=== PATIENT | male | born 1945 | race African-American/Black ===

== ENCOUNTER 2019-12-02 16:53 | Emergency (ER) | payer MEDICARE, MEDICAID, SELFPAY ==
--- NOTE | ~2019-12-02 | XR_ITS ---
EXAMINATION: XR chest 1V portable INDICATION: Atrial fibrillation with RVR TECHNIQUE: Portable AP chest at 1713 hours COMPARISON: None available FINDINGS: Cardiomegaly is noted. There are changes of cardiac valve surgery. Small pleural effusions are present. There are minimal airspace opacities of the mid and lower lung zones. IMPRESSION: 1. Small pleural effusions. 2. Cardiomegaly. 3. Minimal airspace opacities of the mid and lower lung zones, consistent with atelectasis versus pne umonia. Reviewed, dictated and finalized at location A. IMPRESSION: 1. Small pleural effusions. 2. Cardiomegaly. 3. Minimal airspace opacities of the mid and lower lung zones, consistent with atelectasis versus pneumonia.
[2019-12-02 16:54] VITALS: BP 132/98; PULSE 106; RESP 18; TEMP 37.1; O2SAT 100
[2019-12-02 17:00] VITALS: PULSE 106
--- NOTE | 2019-12-02 17:09 | ECG_ITS ---
Measurements Intervals [place] Rate: 106 P: [place]: 0 QRS: -30 QRSD: 103 T: 35 QT: 358 QTc: 477 Interpretive Statements ATRIAL FLUTTER/TACHYCARDIA WITH RAPID VENTRICULAR RESPONSE DELAYED PRECORDIAL R/S TRANSITION BORDERLINE ST-T WAVE ABNORMALITY- INFERIOR LEADS BASELINE ARTIFACT- I, II, III, AVR, AVL, AVF, V1 ABNORMAL ECG Electronically Signed On 12-02-2019 18:06:30 CDT by Renny Lao D.O.
[2019-12-02 17:18] LABS: Basophils Percent Auto 0.7 % (0.2-1.2); Eosinophils Absolute Auto 0.2 K/mm3 (0-0.3); Eosinophils Percent Auto 3.7 % (0-4.4); Hematocrit 33.4 % (42.0-52.0); Immature Granulocyte Absolute 0.01 K/mm3 (0.00-0.031); Immature Granulocyte Percent A 0.2 % (0-0.5); Lymphocytes Percent Auto 26.7 % (18.3-44.2); Mean Corpuscular HGB Conc 29.9 g/dl (32-36); Mean Platelet Volume 10.6 fl (7.4-10.4); Monocytes Absolute Auto 0.8 K/mm3 (0.1-0.6); Monocytes Percent Auto 13.7 % (2.6-8.5); Neutrophils Absolute Auto 3.1 K/mm3 (1.3-6.7); Platelet Count Result 272 k/mm3 (150-375); Red Blood Count 3.84 M/mm3 (4.6-6.20); Red Cell Distribution Width 17.1 % (11.5-14.5); White Blood Count 5.6 K/mm3 (4.5-10.0)
[2019-12-02 17:28] LABS: INR 1.6; Partial Thromboplastin Time 36.6 SECONDS (22.3-36.8)
[2019-12-02 17:36] LABS: Platelet Estimate Adequate (Adequate)
[2019-12-02 17:37] LABS: Anisocytosis 2+ (NORMAL); Hypochromasia 1+ (NORMAL)
[2019-12-02 17:38] LABS: Alanine Aminotransferase 12 U/L (4-50); Albumin Level 4.3 g/dL (3.5-5.1); Alkaline Phosphatase 89 U/L (38-126); Aspartate Amino Transferase 23 U/L (17-59); Bilirubin,Total 0.4 mg/dL (0.2-1.3); Blood Urea Nitrogen 21 mg/dL (9-20); Carbon Dioxide 27 mmol/L (22-30); Chloride 104 mmol/L (98-107); Estimated Glomerular Filt Rate > 60; Glucose 103 mg/dL (75-110); Potassium 3.6 mmol/L (3.4-5.0); Sodium 139 mmol/L (137-145)
[2019-12-02 17:50] LABS: NT Pro B Type Natriuretic Pept 2880 PG/ML (5-100); Troponin I < 0.012 ng/mL (0.000-0.034)
--- NOTE | 2019-12-02 18:40 | PC.NURSE ---
Patient requesting to leave at this time; EDP aware and at bedside discussing further care with patient. Patient disconnected monitor and attempting to get dressed. IV Diltiazem stopped and disconnected.
== END 2019-12-02 19:00 | disposition left against medical advice (07) ==
PROVIDERS: Emergency Medicine
DX: R07.9 Chest pain, unspecified (principal); R94.31 Abnormal electrocardiogram [ECG] [EKG]; I48.92 Unspecified atrial flutter
CPT/HCPCS: 36415; 71045; 80053; 83880; 84484; 85025; 85610; 85730; 93005; 96365; 99199

== ENCOUNTER 2020-01-07 14:53 | Emergency (ER) | payer MEDICARE, MEDICAID, SELFPAY ==
--- NOTE | ~2020-01-07 | CT_ITS ---
EXAMINATION: CT cervical spine wo con DATE: 01/07/2020 16:41 INDICATION: Fall. Neck pain TECHNIQUE: Computed tomography (CT) of the cervical spine was performed without intravenous contrast. Automated exposure control and iterative reconstruction technique were employed. Exam dose: 170.00 mGy-cm total exam DLP. COMPARISON: None FINDINGS: There is reversal of cervical curvature. No fracture or dislocation or locked facet or prev ertebral soft tissue swelling. There is degenerative disc disease throughout the cervical spine, particularly pronounced at C3-4, C4 -5, C5-6 and C6-7 and C7-T1. There is associated mild retrolisthesis at C4-5 and C5-6. Degenerative changes of the apophyseal joints. Uncovertebral joint spurring is noted, particularly at C3-4, C4-5, C5-6, C6-7. Emphysematous changes and scarring are noted at the lung apices. . IMPRESSION: Reversal cervical curvature Severe degenerative changes Reviewed, dictated and finalized at Location A. Reviewed, dictated and finalized at location A.
--- NOTE | ~2020-01-07 | XR_ITS ---
XR knee RT 3V DATE: 01/07/2020 16:50 INDICATION: Fall. Generalized knee pain. TECHNIQUE: 3 views including crosstable lateral COMPARISON: None FINDINGS: Superior pole patellar enthesopathy. No fracture or dislocation or joint effusion. There is moderate loss of medial compartment joint spac e. No radiopaque intra-articular loose body or chondrocalcinosis is evident. Arterial calcifications. IMPRESSION: Degenerative change; no fracture or dislocation or joint effusion Reviewed, dictated and finalized at location A.
--- NOTE | ~2020-01-07 | CT_ITS ---
EXAMINATION: CT brain wo con DATE: 01/07/2020 16:41 INDICATION: Fall. Headache. Neck pain. TECHNIQUE: Computed tomography (CT) of the head was performed without intravenous contrast. The mA wa s adjusted according to patient size. Iterative reconstruction technique was employed. Exam dose: 60 5.33 mGy-cm total exam DLP. COMPARISON: None FINDINGS: There is central and cortical cerebral atrophy. No acute intracranial finding cerebellar atrophy. No intracranial mass lesion or hemorrhage or cerebrovascular accident. No midline shift or mass effec t. There is nonspecific diminished attenuation of the cerebral white matter. There are bilateral cerna tid siphon internal carotid artery calcifications. No subdural or epidural hematoma. No fracture or bone destruction of the cranial vault is evident. Streak artifact from metallic densit y along the posterolateral wall the right maxillary sinus. Included paranasal sinuses and mastoid air cells are normally developed and aerated. IMPRESSION: Cerebral atherosclerosis and chronic small vessel ischemic changes of the cerebral white matter Cerebral and cerebellar atrophy Reviewed, dictated and finalized at Location A. Reviewed, dictated and finalized at location A.
[2020-01-07 14:58] VITALS: BP 105/64; PULSE 74; RESP 17; TEMP 37.2; O2SAT 100
--- NOTE | 2020-01-07 14:59 | ECG_ITS ---
Measurements Intervals [place] Rate: 139 P: [place]: 0 QRS: -34 QRSD: 94 T: 101 QT: 297 QTc: 453 Interpretive Statements ATRIAL FLUTTER/TACHYCARDIA WITH RAPID VENTRICULAR RESPONSE VENTRICULAR PREMATURE COMPLEXES LEFT AXIS DEVIATION DELAYED PRECORDIAL R/S TRANSITION NONSPECIFIC T-WAVE ABNORMALITY- INF/LAT LEADS BASELINE ARTIFACT- II, III, AVL, AVF ABNORMAL ECG Electronically Signed On 01-07-2020 15:01:52 CDT by Renny Lao D.O.
--- NOTE | 2020-01-07 15:49 | PC.NURSE ---
Pt states he has had multiple falls in the last couple months. Pt states he lives alone and has no help. Pt states he walks with walker or pagan. Pt states he did not take meds today due to forgetfulness. Pt states he is unsure if falls are from seizures or why he is falling. Pt states today he hit his head and did not have LOC.
--- NOTE | 2020-01-07 16:35 | ED.GENADULT ---
HPI - General Adult General Chief complaint: Fall Stated complaint: knee pain Time Seen by Provider: 01/07/20 15:23 History of Present Illness HPI narrative: Patient is a 74 y/o male complaining of chronic right knee pain. He describes his pain as sharp, stabbing and rates it as 6/10. He states that earlier today his right knee gave up while he is in bathroom and he fell. He states that he struck his head and he has some headache and neck pain. He denies any LOC. He denies any back pain, chest pain or abdominal pain. Related Data Allergies Allergy/AdvReac Type Severity Reaction Status Date / Time quinine Allergy Unknown Unknown Verified 01/07/20 15:04 Review of Systems Constitutional: Constitutional: Denies chills, Denies fever(s), Denies headache(s) and Denies weakness Eyes: Eyes: Denies blurry vision ENT: Denies headache(s) and Denies neck pain Cardiovascular: Cardiovascular: Denies chest pain and Denies dyspnea Respiratory: Respiratory: Denies cough and Denies dyspnea Gastrointestinal: Gastrointestinal: Denies abdominal pain, Denies diarrhea, Denies nausea and Denies vomiting Genitourinary: Genitourinary: Denies hematuria and Denies dysuria Musculoskeletal: Musculoskeletal: Denies back pain, Reports arthralgias (right knee pain) and Reports neck pain Neurologic: Denies headache(s) and Denies weakness PMFSH Social History Social History Gender identity (if verbalized by the patient): Male Exam Const: General: no acute distress and well developed Orientation/consciousness: oriented to person, oriented to place, oriented to time and patient oriented x3 HENMT: Head: normocephalic Ears: external ears normal General nose exam: Normal external nose present Eyes: General: appearance normal, both eyes and all related structures Conjunctivae: conjunctivae normal Neck: Neck: normal visual inspection and full ROM Chest: Chest palpation & inspection: normal inspection of the chest and no tenderness Resp: Effort & Inspection: normal respiratory effort Auscultation: clear to auscultation bilaterally Cardio: Rate: tachycardic Rhythm: abnormal rhythm irregularly irregular GI: GI Palp: No abdominal tenderness and Yes Soft to palpation Skin: General skin exam: normal color and turgor normal Neuro: General: oriented to person, oriented to place, oriented to time and patient oriented x3 Cranial nerves: Yes CN's II-XII intact bilaterally Cognition (Neuro): normal cognition Speech: normal speech Motor exam (neuro): 5/5 motor strength present throughout Sensory Exam: normal sensation Coordination: [id number] test normal and [id number] test normal Extrem: General: normal to inspection, full ROM and no pedal edema Right lower extremity: knee Details: tenderness; no swelling Psych: Appearance: grossly normal Mental Status: mental status grossly normal Affect: normal affect Course Vital Signs Vital signs: Vital Signs Temperature 37.2 C 01/07/20 14:58 Pulse Rate 74 01/07/20 14:58 Respiratory Rate 17 01/07/20 14:58 Blood Pressure 105/64 01/07/20 14:58 Pulse Oximetry 100 01/07/20 14:58 Temperature 37.2 C 01/07/20 14:58 Pulse Rate 74 01/07/20 14:58 Respiratory Rate 17 01/07/20 14:58 Blood Pressure 105/64 01/07/20 14:58 Pulse Oximetry 100 01/07/20 14:58 Medical Decision Making Differential Diagnosis Differential Diagnosis: A fib with RVR is noted on initial EKG. However, patient has known A fib documented on previous EKG 12/01 and he is on Diltiazem and Eliquis. Recheck HR in 100s. Instructed patient to continue his meds. Vital Signs Vital Signs: Vital Signs Temperature 37.2 C 01/07/20 14:58 Pulse Rate 74 01/07/20 14:58 Respiratory Rate 17 01/07/20 14:58 Blood Pressure 105/64 01/07/20 14:58 Pulse Oximetry 100 01/07/20 14:58 Temperature 37.2 C 01/07/20 14:58 Pulse Rate 74 01/07/20 14:58 R
[2020-01-07 17:29] LABS: Basophils Percent Auto 0.3 % (0.2-1.2); Eosinophils Absolute Auto 0.1 K/mm3 (0-0.3); Eosinophils Percent Auto 0.8 % (0-4.4); Hematocrit 30.1 % (42.0-52.0); Immature Granulocyte Absolute 0.06 K/mm3 (0.00-0.031); Immature Granulocyte Percent A 0.5 % (0-0.5); Lymphocytes Absolute Auto 1.52 K/mm3 (0.9-3.2); Lymphocytes Percent Auto 12.8 % (18.3-44.2); Mean Corpuscular HGB Conc 29.9 g/dl (32-36); Mean Corpuscular Hemoglobin 26.2 pg (26-34); Mean Corpuscular Volume 87.5 fl (80-100); Mean Platelet Volume 10.1 fl (7.4-10.4); Monocytes Absolute Auto 1.1 K/mm3 (0.1-0.6); Monocytes Percent Auto 8.8 % (2.6-8.5); Neutrophils Absolute Auto 9.2 K/mm3 (1.3-6.7); Neutrophils Percent Auto 76.8 % (45.5-73.1); Platelet Count Result 257 k/mm3 (150-375); Red Blood Count 3.44 M/mm3 (4.6-6.20); Red Cell Distribution Width 16.3 % (11.5-14.5); White Blood Count 11.9 K/mm3 (4.5-10.0)
[2020-01-07 17:39] LABS: Blood Urea Nitrogen 13 mg/dL (9-20); Calcium 8.6 mg/dL (8.4-10.2); Carbon Dioxide 25 mmol/L (22-30); Chloride 103 mmol/L (98-107); Estimated CRCL calculation 82 ml/min; Estimated Glomerular Filt Rate > 60; Glucose 72 mg/dL (75-110); Sodium 135 mmol/L (137-145)
[2020-01-07 17:46] LABS: Platelet Estimate Adequate (Adequate)
[2020-01-07 17:47] LABS: Hypochromasia 1+ (NORMAL)
[2020-01-07 17:48] LABS: Anisocytosis 2+ (NORMAL)
[2020-01-07] MEDS: TRAMADOL HCL 50 MG TABLET PO (17:59)
== END 2020-01-07 18:54 | disposition home or self-care (01) ==
PROVIDERS: Emergency Provider Emergency Medicine
DX: S00.03XA Contusion of scalp, initial encounter (principal); M25.561 Pain in right knee; I48.91 Unspecified atrial fibrillation; G89.29 Other chronic pain; W18.39XA Other fall on same level, initial encounter
CPT/HCPCS: 36415; 70450; 72125; 73562; 80048; 85025; 93005; 99284; A9270

== ENCOUNTER 2020-01-21 16:40 | Inpatient (IN) | payer MEDICARE, MEDICAID, SELFPAY ==
[2020-01-21] VITALS (16 sets, daily range): BP systolic 115–146; BP diastolic 64–112; PULSE 70–107; RESP 18–35; TEMP 36.4–37.2; O2SAT 97–100; BMI 19.1
--- NOTE | ~2020-01-21 | US_ITS ---
EXAMINATION:US venous doppler LE BI INDICATION:Calf tenderness TECHNIQUE: Multiple grayscale, color flow and Doppler images of the lower extremity deep venous syste ms were obtained and reviewed. COMPARISON:No prior studies for comparison. FINDINGS: The common femoral, superficial femoral and popliteal veins demonstrate normal respiratory variation, augmentation and compressibility. Color flow is also seen within the posterior tibial, pe roneal, greater saphenous and profunda veins. IMPRESSION: 1: No lower extremity deep venous thrombosis. Reviewed, dictated and finalized at location A.
--- NOTE | ~2020-01-21 | XR_ITS ---
XR chest 2V 01/21/2020 17:11 Indication: Chest pain and shortness of breath Procedure: AP and lateral views of the chest Comparison: 12/02/2019 Findings: Persistent bilateral airspace disease, left greater than right. Small pleural effusions. Ca rdiomegaly. There is a prosthetic heart valve. Status post median sternotomy for CABG. No acute osseo us abnormality. No pneumothorax. Impression: 1: Persistent bilateral airspace disease, left greater than right. Differential diagnosis includes pn eumonia, scarring and/or atelectasis. 2: Small pleural effusions. Reviewed, dictated and finalized at location A. Impression: 1: Persistent bilateral airspace disease, left greater than right. Differential diagnosis includes pneumonia, scarring and/or atelectasis. 2: Small pleural effusions.
--- NOTE | 2020-01-21 16:46 | ECG_ITS ---
Measurements Intervals [place] Rate: 106 P: [place]: 0 QRS: -12 QRSD: 101 T: 23 QT: 360 QTc: 478 Interpretive Statements ATRIAL FLUTTER/TACHYCARDIA WITH RAPID VENTRICULAR RESPONSE DELAYED PRECORDIAL R/S TRANSITION BORDERLINE ST-T WAVE ABNORMALITY- INFERIOR LEADS ABNORMAL ECG Electronically Signed On 01-21-2020 16:50:32 CDT by Renny Lao D.O.
--- NOTE | 2020-01-21 16:55 | ED.CHESTPAIN ---
HPI - Chest Pain General Chief Complaint: Chest Pain Stated Complaint: CP Time Seen by Provider: 01/21/20 16:41 History of Present Illness HPI narrative: Patient presents via EMS for left-sided chest pain. Started 3 days ago got worse today. Worse with activity. Associated with shortness of breath and sweating but not nausea.. He has known heart disease with stents. He has COPD and supposed to wear oxygen at home but he does not. He still smokes cigarettes daily, and marijuana. He denies drinking alcohol. He lives alone and does his own cooking. The pain radiates down his left side. MD complaint: chest pain Pertinent past history: coronary artery disease Onset (ago): day(s) Timing of current episode: episodic Prior episodes: Yes Onset: during exertion Pain location: left chest Pain radiation: other (Left side) Related Data Home Medications Medication Instructions Recorded Confirmed apixaban [Eliquis] mg 01/21/20 aripiprazole mg 01/21/20 citalopram mg 01/21/20 diltiazem HCl [DILT-XR] PO 01/21/20 divalproex PO 01/21/20 lisinopril 01/21/20 oxcarbazepine 01/21/20 spironolactone 01/21/20 tamsulosin mg PO 01/21/20 trazodone 01/21/20 Allergies Allergy/AdvReac Type Severity Reaction Status Date / Time quinine Allergy Unknown Unknown Verified 01/07/20 15:04 Review of Systems Review of Systems: Narrative: CONSTITUTIONAL: Denies fever, chills, but did have sweats, despite the air conditioning EYES: Denies visual changes, redness, or discharge. ENT: Denies rhinorrhea, congestion, sore throat, or otalgia. CARDIOVASCULAR: He has chest pain, but not palpitations, or edema. RESPIRATORY: Denies cough or dyspnea. GASTROINTESTINAL: Denies abdominal pain, nausea, vomiting, or diarrhea. GENITOURINARY: Denies dysuria or hematuria. SKIN: Denies rash or itching. MUSCULOSKELETAL: Denies back pain, joint pain, or myalgia. NEUROLOGIC: Denies headache, numbness, or weakness. PSYCHIATRIC: Denies anxiety or depression. [facility] Past Medical History Medical History Chest pain COPD (chronic obstructive pulmonary disease) Surgical History Surgical History (Updated 01/21/20 @ 17:01 by Amrita Parikh MD) Hx of CABG Social History Social History (Updated 01/21/20 @ 17:01 by Amrita Parikh MD) Smoking status: Current every day smoker Alcohol intake: never Substance use: current Substance use type: marijuana Gender identity (if verbalized by the patient): Male Exam Narrative: Exam Narrative: GENERAL: Cachectic and in no acute distress. No spontaneous movement. HEAD: Normocephalic, atraumatic. EYES: PERRLA and EOMI. ENT: Nares clear, no rhinorrhea or epistaxis. Mucous membranes moist. NECK: Supple. CHEST: Clear to auscultation. No respiratory distress. HEART: Regular rate and rhythm. No murmur heard. Normal peripheral pulses. ABDOMEN: Soft, nontender, nondistended, normal active bowel sounds. EXTREMITIES: Normal range of motion. No edema. SKIN: Warm, dry, no rash. NEURO: No focal deficits. Alert and oriented x3. PSYCH: Flat affect, poor eye contact. Course Consultations Consultation #1: Call the hospitalist for admission for A. fib congestive failure and chest pain. [facility] called back and accepts for Dr. Lyons. The patient will need some diuresis after the heart rate is under 100 with a diltiazem drip. I increase the drip to 15 for I am you. If his pressure does not drop then he can have the diuresis plan. Date: 01/21/20 Time: 18:29 Vital Signs Vital signs: Vital Signs Temperature 99.0 F 01/21/20 16:38 Pulse Rate 106 H 01/21/20 16:38 Respiratory Rate 25 H 01/21/20 16:38 Blood Pressure 134/101 H 01/21/20 16:38 Pulse Oximetry 100 01/21/20 16:38 Temperature 99.0 F 01/21/20 16:38 Pulse Rate 105 H 01/21/20 18:01 Respiratory Rate 19 01/21/20 18:01 Blood Pressure 135/112 H 01/21/20 18:01 Pulse Oximetry 100 01/21/20 1
[2020-01-21] MEDS: NITROGLYCERIN OINTMENT 1 INCH DOSE TRANSDERM (17:01)
[2020-01-21] MEDS: MORPHINE SULFATE 2 MG/ML INJ IV PUSH (17:01)
[2020-01-21] MEDS: dilTIAZem HCl INJ 25 MG/5 ML VIAL 10 MG IV PUSH (17:23)
[2020-01-21 17:34] LABS: Basophils Percent Auto 0.6 % (0.2-1.2); Eosinophils Absolute Auto 0.1 K/mm3 (0-0.3); Eosinophils Percent Auto 2.1 % (0-4.4); Hematocrit 28.5 % (42.0-52.0); Hemoglobin 8.7 g/dL (14.0-18.0); Immature Granulocyte Absolute 0.02 K/mm3 (0.00-0.031); Immature Granulocyte Percent A 0.3 % (0-0.5); Lymphocytes Absolute Auto 1.58 K/mm3 (0.9-3.2); Lymphocytes Percent Auto 23.9 % (18.3-44.2); Mean Corpuscular HGB Conc 30.5 g/dl (32-36); Mean Corpuscular Hemoglobin 26.4 pg (26-34); Mean Corpuscular Volume 86.6 fl (80-100); Mean Platelet Volume 9.6 fl (7.4-10.4); Monocytes Absolute Auto 0.9 K/mm3 (0.1-0.6); Monocytes Percent Auto 13.5 % (2.6-8.5); Neutrophils Absolute Auto 3.9 K/mm3 (1.3-6.7); Neutrophils Percent Auto 59.6 % (45.5-73.1); Platelet Count Result 304 k/mm3 (150-375); Red Blood Count 3.29 M/mm3 (4.6-6.20); Red Cell Distribution Width 16.4 % (11.5-14.5); White Blood Count 6.6 K/mm3 (4.5-10.0)
[2020-01-21 17:43] LABS: INR 1.5; Prothrombin Time 17.5 Seconds (11.1-14.7)
[2020-01-21 17:44] LABS: Blood Urea Nitrogen 24 mg/dL (9-20); Calcium 8.7 mg/dL (8.4-10.2); Carbon Dioxide 24 mmol/L (22-30); Chloride 108 mmol/L (98-107); Estimated Glomerular Filt Rate > 60; Glucose 87 mg/dL (75-110); Partial Thromboplastin Time 33.9 SECONDS (22.3-36.8); Potassium 4.7 mmol/L (3.4-5.0); Sodium 137 mmol/L (137-145)
[2020-01-21 17:57] LABS: NT Pro B Type Natriuretic Pept 4250 PG/ML (5-100); Troponin I < 0.012 ng/mL (0.000-0.034)
[2020-01-21 17:58] LABS: Lactic Acid 0.7 mmol/L (0.7-2.1)
[2020-01-21 21:11] LABS: Troponin I < 0.012 ng/mL (0.000-0.034)
--- NOTE | 2020-01-21 21:36 | ADMGEN ---
This patient, Tor Davis, was admitted to IMU Room 204-01. Patient/family oriented to hospital policies and general routines including ID bracelet, bed and alarms, visiting hours, pain management, procedures, bathroom and other care routines, personal items, smoking policy, room service/diet, and visiting hours. Valuables list has been completed. Information on how to activate the Rapid Response Team has been discussed. Patient/Family are encouraged to report perceived risks to care and to ask questions if they do not understand what they are told or what they should do.
[2020-01-21] MEDS: NITROGLYCERIN SL 0.4 MG TABLET SUBLINGUAL (21:56)
--- NOTE | 2020-01-21 22:01 | ECG_ITS ---
Measurements Intervals [place] Rate: 78 P: [place]: 0 QRS: -27 QRSD: 104 T: 23 QT: 406 QTc: 463 Interpretive Statements ATRIAL FLUTTER/TACHYCARDIA INCOMPLETE RIGHT BUNDLE BRANCH BLOCK DELAYED PRECORDIAL R/S TRANSITION BORDERLINE T WAVE ABNORMALITY- ANT/INF LEADS BASELINE ARTIFACT- I, III, AVR, AVL ABNORMAL ECG Electronically Signed On 01-22-2020 7:04:11 CDT by Renny Lao D.O.
--- NOTE | 2020-01-21 22:08 | PM.IMHP ---
H&P: HPI History of Present Illness Chief complaint: a fib with RVR, CHF, pneumonia, pleural effusions Narrative: This is a pleasant 74 year old male with known past medical history of paroxysmal atrial fibrillation on chronic Eliquis therapy, seizure disorder, and COPD who presented to the hospital with a complaint of severe shortness of breath. The patient reports 2 days of increased shortness of breath and intermittent left sided chest pain. He has not had any fevers, chills, abdominal pain, dysuria, hematuria, vomiting, diarrhea or rectal bleeding. He does reports increased productive cough and continues to smoke cigarettes. He was evaluated tonight in the ER and found to be in rapid atrial fibrillation. He denies missing any of his home medications recently. CXR was obtained which demonstrated ongoing bilateral airspace disease and pleural effusions (L>R). The patient was started on Diltiazem for rate control and IV antibiotics were given for possible pneumonia. On my encounter with him he is currently complaining of left sided chest pain. Review of Systems Review of Systems: All systems reviewed & are unremarkable except as noted in HPI and below PMFSH Past Medical History Medical History (Updated 01/23/20 @ 06:42 by Moe Ross MD) CAD (coronary artery disease) of artery bypass graft Chest pain COPD (chronic obstructive pulmonary disease) Family history unremarkable Paroxysmal atrial fibrillation Seizure disorder Surgical History Surgical History Hx of CABG Social History Social History Smoking packs per day: 0.5 Smoking cigarettes per day: 10.0 Years smoked: 40 Smoking pack-years: 20.00 Smoking status: Current every day smoker Tobacco type: cigarettes Alcohol intake: former Substance use: current Substance use type: marijuana Gender identity (if verbalized by the patient): Male Spiritual care concerns: No Meds Home Medications and Allergies Home Medications Medication Instructions Recorded Confirmed Type apixaban [Eliquis] 5 mg PO BID 01/21/20 01/21/20 History aripiprazole 10 mg PO HS 01/21/20 01/21/20 History citalopram 40 mg PO DAILY 01/21/20 01/21/20 History diltiazem HCl [DILT-XR] 240 mg PO DAILY 01/21/20 01/21/20 History divalproex 125 mg PO BID 01/21/20 01/21/20 History lisinopril 20 mg PO DAILY 01/21/20 01/21/20 History oxcarbazepine 300 mg PO BID 01/21/20 01/21/20 History spironolactone 25 mg PO DAILY 01/21/20 01/21/20 History tamsulosin 0.4 mg PO DAILY 01/21/20 01/21/20 History trazodone 150 mg PO HS 01/21/20 01/21/20 History Allergies Allergy/AdvReac Type Severity Reaction Status Date / Time quinine Allergy Unknown Unknown Verified 01/07/20 15:04 Vital Signs Vital Signs - 24 hr 01/21/20 16:38 01/21/20 16:45 01/21/20 16:49 Temperature 37.2 C Pulse Rate 106 H 106 H 107 H Respiratory Rate 25 H 35 H Blood Pressure 134/101 H Pulse Oximetry 100 100 01/21/20 17:12 01/21/20 17:13 01/21/20 17:17 Temperature Pulse Rate 106 H 106 H 106 H Respiratory Rate 22 H 24 H 23 H Blood Pressure 146/110 H Pulse Oximetry 100 100 100 01/21/20 17:24 01/21/20 17:52 01/21/20 18:00 Temperature Pulse Rate 106 H 105 H 105 H Respiratory Rate 18 22 H Blood Pressure 145/104 H Pulse Oximetry 100 100 01/21/20 18:01 01/21/20 20:30 01/21/20 20:51 Temperature Pulse Rate 105 H 82 82 Respiratory Rate 19 22 H 22 H Blood Pressure 135/112 H 115/82 115/82 Pulse Oximetry 100 99 99 01/21/20 21:11 01/21/20 21:42 Temperature 36.4 C Pulse Rate 77 84 Respiratory Rate 18 Blood Pressure 123/64 Pulse Oximetry 100 Exam Const: General: cooperative, no acute distress, alert, awake and ill appearing chronically Nutritional Appearance: thin Orientation/consciousness: patient oriented x3 HENMT: Head: normal to inspection G
[2020-01-21] MEDS: FUROSEMIDE INJ 40 MG/4 ML VIAL IV PUSH (22:10)
[2020-01-21] MEDS: APIXABAN 5 MG TABLET PO (23:18)
[2020-01-21] MEDS: ARIPIPRAZOLE 10 MG TABLET PO (23:18)
[2020-01-21] MEDS: traZODone HCL 50 MG TABLET 150 MG PO (23:18)
[2020-01-21] MEDS: DIVALPROEX SODIUM SPRINKLE 125 MG CAP.DR PO (23:18)
[2020-01-21] MEDS: OXcarbazepine 300 MG TABLET PO (23:19)
[2020-01-21 23:51] LABS: Troponin I < 0.012 ng/mL (0.000-0.034)
[2020-01-22] VITALS (20 sets, daily range): BP systolic 101–149; BP diastolic 57–89; PULSE 58–106; RESP 18–20; TEMP 36–36.6; O2SAT 96–100
--- NOTE | 2020-01-22 | ECHO_ITS ---
Patient Info Name: Tor Davis Age: 74 years : 1945 Gender: Male Ht: 74 in Wt: 149 lbs BSA: 1.86 m2 HR: 64 bpm BP: 149 / 89 mmHg Heart Rhythm: Atrial Fibrillation Technical Quality: Good Exam Date: 01/22/2020 9:13 AM Exam Location: [facility] Patient Status: Inpatient Admit Date: 01/21/2020 Staff Ordering Physician: Moe Ross MD Passenger Flagman: Abhi Carrero RDCS, RT Attending Provider: Coco Lynne PA-C Referring Physician: Cody DEWITT; Exam Type: CA echo doppler color flow Study Info Indications I48.1 - Persistent atrial fibrillation Complete two-dimensional, color flow and Doppler transthoracic echocardiogram is performed. Summary 1. Left ventricular systolic function is normal, estimated at 60-65%. 2. There is mildly increased left ventricular wall thickness. 3. The left ventricular diastolic function is indeterminate. 4. Right ventricular chamber dimension is severely enlarged. 5. Right ventricular systolic function is reduced. 6. Left atrial chamber dimension is moderately enlarged. 7. Right atrial chamber dimension is severely enlarged. 8. There is severe tricuspid valve regurgitation. 9. Mild pulmonary hypertension, estimated pulmonary arterial systolic pressure is 39 mmHg. 10. The bioprosthetic mitral valve leaflefts are probably normal, but not well visualized. 11. There is mild regurgitation of the bioprosthetic mitral valve. Left Ventricle Left ventricular chamber dimension is normal. Left ventricular systolic function is normal, estimated at 60-65%. There is mildly increased left ventricular wall thickness. The left ventricular diastolic function is indeterminate. Global longitudinal strain is normal at -20 %. Right Ventricle Right ventricular chamber dimension is severely enlarged. Right ventricular systolic function is reduced. Left Atria Left atrial chamber dimension is moderately enlarged. Right Atria Right atrial chamber dimension is severely enlarged. Aortic Valve The aortic valve is trileaflet. There is mild aortic valve sclerosis. There is no aortic valve stenosis. There is no aortic valve regurgitation. Pulmonic Valve The pulmonic valve is not well visualized. There is mild pulmonic regurgitation. Mitral Valve The bioprosthetic mitral valve leaflefts are probably normal, but not well visualized. There is mild regurgitation of the bioprosthetic mitral valve. Tricuspid Valve The tricuspid valve leaflets are normal. There is severe tricuspid valve regurgitation. Mild pulmonary hypertension, estimated pulmonary arterial systolic pressure is 39 mmHg. Pericardium/Pleural The pericardium appears normal. There is trivial pericardial effusion. Inferior Vena Cava Dilated inferior vena cava with no collapse upon inspiration consistent with significantly elevated right atrial pressure, 15 mmHg. Aorta The aortic root size at the sinus of Valsalva is normal. There is mild aortic atherosclerosis. Left Ventricular Outflow Tract Name Value Normal LVOT 2D LVOT Diameter 2.1 cm LVOT Doppler LVOT Peak Gradient 2 mmHg
--- NOTE | 2020-01-22 00:38 | PC.NURSE ---
This patient, Tor Davis, was transferred to [ ICU 7] on 01/22/20 at 0039. Personal belongings sent with patient. Belongings list checked and signed with receiving [ ]. Report given to [Teresa Taylor rn ]. Appropriate documentation sent with patient.
[2020-01-22 04:44] LABS: Basophils Absolute Auto 0.1 K/mm3 (0.0-0.1); Basophils Percent Auto 0.7 % (0.2-1.2); Eosinophils Absolute Auto 0.2 K/mm3 (0-0.3); Eosinophils Percent Auto 2.6 % (0-4.4); Hematocrit 32.6 % (42.0-52.0); Hemoglobin 9.9 g/dL (14.0-18.0); Immature Granulocyte Absolute 0.02 K/mm3 (0.00-0.031); Immature Granulocyte Percent A 0.3 % (0-0.5); Lymphocytes Absolute Auto 1.98 K/mm3 (0.9-3.2); Lymphocytes Percent Auto 28.9 % (18.3-44.2); Mean Corpuscular HGB Conc 30.4 g/dl (32-36); Mean Corpuscular Hemoglobin 26.1 pg (26-34); Mean Platelet Volume 9.6 fl (7.4-10.4); Monocytes Percent Auto 14.6 % (2.6-8.5); Neutrophils Absolute Auto 3.6 K/mm3 (1.3-6.7); Neutrophils Percent Auto 52.9 % (45.5-73.1); Platelet Count Result 365 k/mm3 (150-375); Red Blood Count 3.79 M/mm3 (4.6-6.20); Red Cell Distribution Width 16.6 % (11.5-14.5); White Blood Count 6.8 K/mm3 (4.5-10.0)
[2020-01-22 04:56] LABS: Blood Urea Nitrogen 20 mg/dL (9-20); Calcium 9.4 mg/dL (8.4-10.2); Carbon Dioxide 26 mmol/L (22-30); Chloride 101 mmol/L (98-107); Estimated CRCL calculation 79 ml/min; Estimated Glomerular Filt Rate > 60; Glucose 91 mg/dL (75-110); Magnesium 1.9 mg/dL (1.6-2.3); Potassium 3.9 mmol/L (3.4-5.0); Sodium 137 mmol/L (137-145)
[2020-01-22] MEDS: APIXABAN 5 MG TABLET PO ×2 (07:42→17:05)
[2020-01-22] MEDS: lisinopriL 20 MG TABLET PO (07:42)
[2020-01-22] MEDS: OXcarbazepine 300 MG TABLET PO ×2 (07:42→17:06)
[2020-01-22] MEDS: DIVALPROEX SODIUM SPRINKLE 125 MG CAP.DR PO ×2 (07:42→17:05)
[2020-01-22] MEDS: SPIRONOLACTONE 25 MG TABLET PO (07:43)
[2020-01-22] MEDS: TAMSULOSIN HCL 0.4 MG CAPSULE PO (07:43)
[2020-01-22 07:49] LABS: Free T4 Free Thyroxine Reflex 1.42 ng/dL (0.78-2.19)
--- NOTE | 2020-01-22 07:55 | ECG_ITS ---
Measurements Intervals [place] Rate: 71 P: -81 [place]: 150 QRS: -23 QRSD: 90 T: 0 QT: 240 QTc: 262 Interpretive Statements ATRIAL FLUTTER/TACHYCARDIA INCOMPLETE RIGHT BUNDLE BRANCH BLOCK DELAYED PRECORDIAL R/S TRANSITION BASELINE ARTIFACT- I, II, III, AVR, AVL, AVF, V3 ABNORMAL ECG Electronically Signed On 01-22-2020 8:57:26 CDT by Renny Lao D.O.
[2020-01-22] MEDS: NITROGLYCERIN SL 0.4 MG TABLET SUBLINGUAL (07:58)
[2020-01-22 10:08] LABS: Total Triiodothyronine (T3) 1.24 NG/ML (0.97-1.69)
--- NOTE | 2020-01-22 14:41 | PM.IMPN ---
Progress Note: A&P Assessment and Plan (1) Atrial fibrillation with rapid ventricular response: Code(s): I48.91 - Unspecified atrial fibrillation Status: Acute Assessment and Plan: Patient has history of A-fib and is established with washer blanket Dr. Shane. He complained of palpitations and was found to be in A-fib with RVR. His vital signs remain stable. Diltiazem drip was discontinued this morning as patient's heart rate dropped to 40s. Rate has been stable in the 80s since. Plan to resume home dose of oral diltiazem tomorrow morning Continue eliquis Continue to monitor heart rate closely (2) Pneumonia: Qualifiers: Laterality: bilateral Lung location: unspecified part of lung Pneumonia type: due to unspecified organism Qualified Code(s): J18.9 - Pneumonia, unspecified organism Code(s): J18.9 - Pneumonia, unspecified organism Status: Acute Assessment and Plan: Chest x-ray demonstrates bilateral airspace disease (L>R). Patient complains of increased shortness of breath and cough productive of sputum. He is afebrile and without leukocytosis. Continue azithromycin and ceftriaxone Blood cultures are pending. Will attempt collection of sputum culture. Check pneumococcal and legionella urinary antigens Continue supportive care with oxygen as needed, albuterol and mucinex (3) COPD (chronic obstructive pulmonary disease): Code(s): J44.9 - Chronic obstructive pulmonary disease, unspecified Status: Acute Assessment and Plan: Patient has a history of COPD but is not on any bronchodilators. He is maintaining adequate oxygenation on room air. He does complain of increased shortness of breath and cough. Begin albuterol as needed Patient may benefit from outpatient pulmonary function testing (4) Chest pain: Code(s): R07.9 - Chest pain, unspecified Status: Acute Assessment and Plan: Patient previously complained of anterior left-sided sharp, stabbing chest pain which is not reproducible on exam and did not radiate. Troponins were negative and ACS is not suspected. He denies any chest pain to me. Continue nitroglycerin as needed for pain (5) Bilateral pleural effusion: Code(s): J90 - Pleural effusion, not elsewhere classified Status: Acute Assessment and Plan: Patient has small pleural effusions bilaterally, consistent with previous chest x-ray in November 2019. May be secondary to cardiac surgery. Continue to monitor (6) Anxiety: Code(s): F41.9 - Anxiety disorder, unspecified Status: Acute Assessment and Plan: Patient reports he often feels anxious, especially when he is away from his family. Both he and his granddaughter question if his chest pain and palpitations may be brought on by anxiety. Continue to monitor closely Continue citalopram Subjective Date/time seen: 01/22/20 14:41 Interval history: Date of service: 01/22/2020 Mr. Davis reports he is doing well today. He has no acute concerns at this time. This morning, he tells me that he had a mild episode of left-sided pleuritic-type chest pain. He also had some palpitations this morning. He is somewhat anxious about being in the hospital. He feels fatigued and somewhat weak. He is also mildly short of breath and complaints of cough productive of white sputum. He denies chest pain at this time. He denies abdominal pain, nausea, vomiting, diarrhea, fever, chills, dizziness, or lightheadedness. His appetite has been good. He is urinating regularly and denies any urinary symptoms. He has not had a bowel movement yet today. Review of Systems Review of Systems: Narrative: A 12 point review of systems was reviewed with pertinent positives and negatives as per HPI. Exam Narrative: Exam Narrative: Mr. Davis is examined alone today. He is a thin 74-year-old male who is lying supine in bed. He is asleep, b
[2020-01-22] MEDS: FAMOTIDINE 20 MG/2 ML VIAL IV PUSH (20:07)
[2020-01-22] MEDS: guaiFENesin 12 HR 600 MG TABCR PO (20:07)
[2020-01-22] MEDS: traZODone HCL 50 MG TABLET 150 MG PO (20:07)
[2020-01-22] MEDS: ARIPIPRAZOLE 10 MG TABLET PO (20:08)
[2020-01-23] VITALS (27 sets, daily range): BP systolic 93–130; BP diastolic 50–90; PULSE 54–203; RESP 12–29; TEMP 36.3–36.9; O2SAT 92–100
[2020-01-23 05:02] LABS: Hematocrit 29.8 % (42.0-52.0); Hemoglobin 9.1 g/dL (14.0-18.0); Mean Corpuscular HGB Conc 30.5 g/dl (32-36); Mean Corpuscular Volume 85.1 fl (80-100); Mean Platelet Volume 9.7 fl (7.4-10.4); Platelet Count Result 343 k/mm3 (150-375); Red Cell Distribution Width 16.6 % (11.5-14.5); White Blood Count 6.5 K/mm3 (4.5-10.0)
[2020-01-23 05:29] LABS: Alanine Aminotransferase 11 U/L (4-50); Albumin Level 3.5 g/dL (3.5-5.1); Alkaline Phosphatase 84 U/L (38-126); Aspartate Amino Transferase 22 U/L (17-59); Bilirubin,Total 0.3 mg/dL (0.2-1.3); Blood Urea Nitrogen 21 mg/dL (9-20); CRP 1.4 mg/dL (<1.0); Calcium 8.6 mg/dL (8.4-10.2); Carbon Dioxide 25 mmol/L (22-30); Chloride 101 mmol/L (98-107); Creatine Kinase 35 U/L (55-170); Estimated CRCL calculation 79 ml/min; Estimated Glomerular Filt Rate > 60; Glucose 91 mg/dL (75-110); Lactate Dehydrogenase 802 U/L (313-618); Potassium 4.6 mmol/L (3.4-5.0); Sodium 133 mmol/L (137-145)
--- NOTE | 2020-01-23 07:35 | PCOTNOTE ---
Hold OT evaluation. Luke gimenez called 7:35AM this date. Will complete OT evaluation when medically appropriate.
--- NOTE | 2020-01-23 07:36 | ECG_ITS ---
Measurements Intervals [place] Rate: 101 P: -73 MN: 94 QRS: 216 QRSD: 91 T: 207 QT: 354 QTc: 461 Interpretive Statements ATRIAL FLUTTER/TACHYCARDIA WITH RAPID VENTRICULAR RESPONSE CANNOT RULE OUT SEPTAL INFARCT, AGE INDETERMINATE BORDERLINE ST-T WAVE ABNORMALITY- INF/LAT LEADS BASELINE ARTIFACT- I, II, AVR, AVL ABNORMAL ECG Electronically Signed On 01-24-2020 7:15:10 CDT by Renny Lao D.O.
[2020-01-23] MEDS: METOPROLOL TARTRATE INJ 5 MG/5 ML VIAL (08:10)
--- NOTE | 2020-01-23 08:20 | PCPTNOTE ---
Hold PT evaluation. Code blue and rapid response called this AM. Will complete PT evaluation when medically appropriate.
--- NOTE | 2020-01-23 08:32 | PM.IMPN ---
Progress Note: A&P Assessment and Plan (1) Atrial fibrillation with rapid ventricular response: Code(s): I48.91 - Unspecified atrial fibrillation Status: Acute Assessment and Plan: Patient has a history of A-fib and is established with model maker firearms Dr. Shane. He was noted to be in A-fib with RVR at presentation. He was started on diltiazem drip on 01/20, which was discontinued on 01/21 because his heart rate dropped into the 40s. This morning, he had an episode of symptomatic tachycardia with HR in 200s. He remained alert and oriented and is hemodynamically stable. IV metoprolol given with improvement of tachycardia Plan to resume diltiazem drip at 5 mg/hour Continue [facility] Cardiology has been consulted and their recommendations are appreciated. Plan for cardioversion this morning. Continue to monitor heart rate closely (2) Pneumonia: Qualifiers: Laterality: bilateral Lung location: unspecified part of lung Pneumonia type: due to unspecified organism Qualified Code(s): J18.9 - Pneumonia, unspecified organism Code(s): J18.9 - Pneumonia, unspecified organism Status: Acute Assessment and Plan: Chest x-ray demonstrates bilateral airspace disease (L>R). Patient complains of increased shortness of breath and cough productive of sputum. He is afebrile and without leukocytosis. I suspect this is related to his underlying COPD. Continue azithromycin and ceftriaxone Preliminary blood cultures show NGTD. Will attempt collection of sputum culture. Pneumococcal and legionella urinary antigens are pending Continue supportive care with oxygen as needed, albuterol and mucinex (3) COPD (chronic obstructive pulmonary disease): Code(s): J44.9 - Chronic obstructive pulmonary disease, unspecified Status: Chronic Assessment and Plan: Patient has a history of COPD but is not on any bronchodilators. He is maintaining adequate oxygenation on room air. He does complain of increased shortness of breath and cough. Echo demonstrated evidence of chronic lung disease with right atrial and ventricular dilation and pulmonary hypertension. Unfortunately, he continues to smoke 1/2 ppd. Continue albuterol and ipratropium Patient may benefit from outpatient pulmonary function testing Continue to encourage smoking cessation (4) Chest pain: Code(s): R07.9 - Chest pain, unspecified Status: Acute Assessment and Plan: He had an episode of left sided chest discomfort on 01/20 with negative troponins and no evidence of ST changes on EKG, therefore ACS was not suspected. He again complains of anterior left-sided chest pain today which is reproducible with palpation of chest wall and exacerbated by coughing or deep breaths. Suspect this is pleuritic related to underlying pneumonia/COPD. PE is less likely given chronic Eliquis therapy, however he did complain of calf tenderness. Continue nitroglycerin as needed for pain Repeat troponin Repeat CXR Bilateral lower extremity doppler given calf tenderness (5) Bilateral pleural effusion: Code(s): J90 - Pleural effusion, not elsewhere classified Status: Acute Assessment and Plan: Patient has small pleural effusions bilaterally, consistent with previous chest x-ray in November 2019. Continue spironolactone Continue to monitor (6) Anxiety: Code(s): F41.9 - Anxiety disorder, unspecified Status: Acute Assessment and Plan: Patient reports he often feels anxious. He was anxious this morning given his tachycardia. Continue to monitor closely Continue citalopram Subjective Date/time seen: 01/23/20 08:32 Interval history: Date of service: 01/23/2020 I was called to the bedside today because Mr. Davis's heart rate was elevated in the 200s. He remained alert and oriented throughout the episode. He reports he was diaphoretic and lightheaded during this episode. He complain
--- NOTE | 2020-01-23 08:53 | PM.CNCAR ---
Assessment and Plan Additional Plan 74-year-old gentleman with symptomatic tachycardia related to atrial flutter with RVR. This morning he actually went into one-to-one conduction and became very tachycardic. His heart rate did improve with some metoprolol and he is hemodynamically stable at this time. It is my impression that his atrial flutter is related to his chronic lung disease since he has marked right-sided cardiac dilation seen on his echocardiogram and his chest x-ray more so than his prosthetic mitral valve which seems to be functioning normally. I believe there should be an attempt made to restore sinus rhythm since we do not know that this gentleman's atrial flutter is chronic. He is chronically anticoagulated so it would be reasonable to attempt to restore the sinus rhythm electrically. If we are successful then I would like to start him on flecainide in attempt to maintain normal rhythm since his flutter appears to be related to underlying chronic lung disease. Systemic anticoagulation with apixaban should be continued. Dameon Lazcano MD [facility] History of Present Illness History of Present Illness Consult date/time: 01/23/20 08:53 Reason For Visit: a fib with RVR, CHF, pneumonia, pleural effusions Narrative: This is a 74-year-old black male I am seeing at the request of the hospitalist this morning to assist in the evaluation and management of atrial tachyarrhythmias. Patient is unknown to me prior to this encounter. According to the patient who is a somewhat poor historian he has a history of valvular heart disease. He receives his medical care up in [facility] where he resides normally. He has cardiology follow-up up in that community. According to the records he has a history of mitral valve replacement the patient states his mitral valve was replaced 5 or 6 years ago up in [place] he can't recall the reason for the original pathology that required surgery. 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 He states that was a number of years ago but can't recall any of those details. Came to this hospital's emergency room last evening with symptoms of some chest pain and tachycardia. He was found to be tachycardic and diagnosed with atrial fibrillation with RVR. There have been 4 5 EKGs done in telemetry strips recorded since he has been in the hospital and I do not see any evidence of atrial fibrillation. When he had appears to have is persistent atrial flutter with variable conduction. His home regimen of medications included long-acting diltiazem at 240 mg per day and systemic anticoagulation with apixaban 5 mg b.i.d.. This morning he was being seen by the nurse and was noted to become abruptly tachycardic his heart rate was over 200 beats per minute a rapid response/code was called to his room he was evaluated and given an intravenous dose of metoprolol which has improved his heart rate he is now in the 90s to low 100s. He is relatively comfortable and essentially asymptomatic. An echocardiogram was done read yesterday by my partner demonstrating normal left ventricular function and well-functioning mitral valve prosthesis. The echo also demonstrates marked dilation of the right heart chambers. Chest x-ray also demonstrates right ventricular enlargement and evidence of severe chronic lung disease. He does have a history of chronic cigarette smoking and states that he has been smoking since he was about 17 years old. There are no old records or electrocardiograms available here at [facility] for my review. Review of Systems Constitutional: Constitutional: Reports lethargy and Reports weakness Eyes: Eyes: Reports no additional eye complaints ENT: Reports system reviewed and no additional complaints, except as documented Cardiovascular: Cardiovascular: Reports as per HPI an
[2020-01-23] MEDS: OXcarbazepine 300 MG TABLET PO ×2 (08:54→19:20)
[2020-01-23] MEDS: APIXABAN 5 MG TABLET PO ×2 (08:54→19:20)
[2020-01-23] MEDS: guaiFENesin 12 HR 600 MG TABCR PO ×2 (08:54→20:20)
[2020-01-23] MEDS: DIVALPROEX SODIUM SPRINKLE 125 MG CAP.DR PO ×2 (08:54→19:20)
[2020-01-23] MEDS: FAMOTIDINE 20 MG/2 ML VIAL IV PUSH ×2 (08:54→20:19)
[2020-01-23] MEDS: SPIRONOLACTONE 25 MG TABLET PO (08:54)
[2020-01-23] MEDS: TAMSULOSIN HCL 0.4 MG CAPSULE PO (08:54)
[2020-01-23] MEDS: lisinopriL 20 MG TABLET PO (08:54)
--- NOTE | 2020-01-23 09:59 | WPDANESEPPF ---
Anes - Initial Pre Proc Eval Procedure: Operation Date: 01/23/20 10:00 Proposed Procedures p Electrical Cardioversion - Dameon Lazcano MD Date/Time: 01/23/20 09:59 Surgeon: Coco Lynne PA-C Pre Op Diagnosis: a fib with RVR, CHF, pneumonia, pleural effusions Patient Data Age: 74 Gender: M Height: 6 ft 2 in Weight: 67.7 kg Last Vital Signs Temp 36.8 C 01/23/20 08:30 Pulse 98 01/23/20 08:30 Resp 22 H 01/23/20 08:30 BP 130/90 01/23/20 08:30 Pulse Ox 100 01/23/20 08:30 Allergies Allergy/AdvReac Type Severity Reaction Status Date / Time quinine Allergy Unknown Unknown Verified 01/07/20 15:04 Home Medications Medication Instructions Recorded Confirmed Type apixaban [Eliquis] 5 mg PO BID 01/21/20 01/21/20 History aripiprazole 10 mg PO HS 01/21/20 01/21/20 History citalopram 40 mg PO DAILY 01/21/20 01/21/20 History diltiazem HCl [DILT-XR] 240 mg PO DAILY 01/21/20 01/21/20 History divalproex 125 mg PO BID 01/21/20 01/21/20 History lisinopril 20 mg PO DAILY 01/21/20 01/21/20 History oxcarbazepine 300 mg PO BID 01/21/20 01/21/20 History spironolactone 25 mg PO DAILY 01/21/20 01/21/20 History tamsulosin 0.4 mg PO DAILY 01/21/20 01/21/20 History trazodone 150 mg PO HS 01/21/20 01/21/20 History Laboratory Tests 01/22/20 01/23/20 01/23/20 04:31 04:38 04:38 WBC 6.5 K/mm3 K/mm3 (4.5-10.0) RBC 3.50 M/mm3 L M/mm3 (4.6-6.20) Hgb 9.1 g/dL L g/dL (14.0-18.0) Hct 29.8 % L % (42.0-52.0) MCV 85.1 fl fl (80-100) MCH 26.0 pg pg (26-34) MCHC 30.5 g/dl L g/dl (32-36) RDW 16.6 % H % (11.5-14.5) Plt Count 343 k/mm3 k/mm3 (150-375) MPV 9.7 fl fl (7.4-10.4) Sodium 133 mmol/L L mmol/L (137-145) Potassium 4.6 mmol/L mmol/L (3.4-5.0) Chloride 101 mmol/L mmol/L (98-107) Carbon Dioxide 25 mmol/L mmol/L (22-30) BUN 21 mg/dL H mg/dL (9-20) Creatinine 0.70 mg/dL mg/dL (0.7-1.3) Estim Creat Clear Calc 79 ml/min ml/min Estimated GFR > 60 (59 - ) Glucose 91 mg/dL mg/dL (75-110) Calcium 8.6 mg/dL mg/dL (8.4-10.2) Ferritin Total Bilirubin 0.3 mg/dL mg/dL (0.2-1.3) AST 22 U/L U/L (17-59) ALT 11 U/L U/L (4-50) Alkaline Phosphatase 84 U/L U/L (38-126) Lactate Dehydrogenase 802 U/L H U/L (313-618) Total Creatine Kinase 35 U/L L U/L (55-170) C-Reactive Protein 1.4 mg/dL H mg/dL (<1.0) Total Protein 7.0 g/dL g/dL (6.3-8.2) Albumin 3.5 g/dL g/dL (3.5-5.1) Total T3 1.24 NG/ML NG/ML (0.97-1.69) Ur L.pneumophila Ag Urine Pneumococcal Ag 01/23/20 01/23/20 01/23/20 04:38 04:50 04:50 WBC RBC Hgb Hct MCV MCH MCHC RDW Plt Count MPV Sodium Potassium Chloride Carbon Dioxide BUN Creatinine Estim Creat Clear Calc Estimated GFR Glucose Calcium Ferritin 23.80 ng/mL ng/mL (11.1-264) Total Bilirubin AST ALT Alkaline Phosphatase Lactate Dehydrogenase Total Creatine Kinase C-Reactive Protein Total Protein Albumin Total T3 Ur L.pneumophila Ag Pending Urine Pneumococcal Ag Pending Patient hx anesthesia problems: none Family hx anesthesia problems: none PMFSH Past Medical History Medical History CAD (coronary artery disease) of artery bypass graft Chest pain COPD (chronic obstr
--- NOTE | 2020-01-23 10:15 | P.PCNCC_ITS ---
Cardiac Cath Procedure Note Date of procedure:: 01/23/20 Performing physician:: Dameon Lazcano MD Indication:: Atrial flutter with rapid ventricular response including 1-1 conduction Brief clinical history:: This is a 74-year-old black male with history of mitral valve replacement performed elsewhere approximately 6 years earlier. He also has severe underlying COPD due to chronic tobacco use. Patient id was admitted to the hospital yesterday with symptomatic atrial flutter. He has been given diltiazem for the hospital staff to try to provide rate control. Despite this this morning he became very symptomatic with one-to-one conduction. This was improved with the injection of intravenous metoprolol. For further treatment of this we were consulted. He is chronically anticoagulated with apixaban. Echocardiogram demonstrated significant right-sided dilation due to chronic lung disease and a normally functioning mitral valve prosthesis. In an attempt to restore sinus rhythm I recommended a DC cardioversion Procedure Procedure performed:: DC cardioversion Sedation/Medication given:: Sedated per anesthesia service Estimated blood loss:: No blood loss Procedure note:: After the patient was sedated per the Anesthesia Service he was cardioverted in a synchronized fashion with 200 joules x1 shock restoring normal sinus rhythm Findings:: Successful cardioversion as described above Conclusion:: Successful DC cardioversion of atrial flutter restoring sinus rhythm using 200 joules x1 countershock. Dameon Lazcano MD [facility]
[2020-01-23] MEDS: FLECAINIDE ACETATE 100 MG TABLET PO ×2 (10:41→20:19)
--- NOTE | 2020-01-23 12:56 | ECG_ITS ---
Measurements Intervals [place] Rate: 87 P: 43 [place]: 235 QRS: -38 QRSD: 114 T: 30 QT: 400 QTc: 482 Interpretive Statements SINUS RHYTHM WITH FIRST DEGREE AV BLOCK LEFT ATRIAL ENLARGEMENT LEFT AXIS DEVIATION INCOMPLETE RIGHT BUNDLE BRANCH BLOCK DELAYED PRECORDIAL R/S TRANSITION BASELINE ARTIFACT- II, III ABNORMAL ECG Electronically Signed On 01-23-2020 13:26:42 CDT by Renny Lao D.O.
[2020-01-23] MEDS: IPRATROPIUM BR 0.02% INH SOLN 0.5 MG/2.5 ML VIAL INHALATION ×2 (14:22→20:57)
[2020-01-23] MEDS: ARIPIPRAZOLE 10 MG TABLET PO (20:18)
[2020-01-23] MEDS: DOXYCYCLINE HYCLATE 100 MG TABLET PO (20:18)
[2020-01-24] VITALS (24 sets, daily range): BP systolic 71–125; BP diastolic 45–78; PULSE 49–103; RESP 12–20; TEMP 35.7–36.9; O2SAT 92–100
[2020-01-24] MEDS: IPRATROPIUM BR 0.02% INH SOLN 0.5 MG/2.5 ML VIAL INHALATION ×4 (01:45→19:52)
--- NOTE | 2020-01-24 02:00 | ECG_ITS ---
Measurements Intervals [place] Rate: 53 P: [place]: 0 QRS: -52 QRSD: 112 T: 26 QT: 475 QTc: 447 Interpretive Statements ECTOPIC ATRIAL BRADYCARDIA AND JUNCTIONAL RHYTHM INCOMPLETE RIGHT BUNDLE BRANCH BLOCK LEFT ANTERIOR FASCICULAR BLOCK CANNOT RULE OUT SEPTAL INFARCT, AGE INDETERMINATE ABNORMAL ECG Electronically Signed On 01-24-2020 7:29:57 CDT by Renny Lao D.O.
[2020-01-24] MEDS: SODIUM CHLORIDE 0.9% IV 500 ML 999 ML IV CONT (04:03)
--- NOTE | 2020-01-24 04:15 | ECG_ITS ---
Measurements Intervals [place] Rate: 50 P: [place]: 0 QRS: -49 QRSD: 114 T: -17 QT: 494 QTc: 452 Interpretive Statements SINUS OR ECTOPIC ATRIAL BRADYCARDIA WITH FIRST DEGREE AV BLOCK JUNCTIONAL ESCAPE COMPLEXES WITH ATRIAL PREMATURE COMPLEXES INCOMPLETE RIGHT BUNDLE BRANCH BLOCK LEFT ANTERIOR FASCICULAR BLOCK BORDERLINE ST-T WAVE ABNORMALITY- INFERIOR LEADS ABNORMAL ECG Electronically Signed On 01-24-2020 7:37:08 CDT by Renny Lao D.O.
[2020-01-24 06:10] LABS: Hemoglobin 8.8 g/dL (14.0-18.0); Mean Corpuscular HGB Conc 30.3 g/dl (32-36); Mean Corpuscular Hemoglobin 26.5 pg (26-34); Mean Corpuscular Volume 87.3 fl (80-100); Mean Platelet Volume 9.9 fl (7.4-10.4); Platelet Count Result 315 k/mm3 (150-375); Red Blood Count 3.32 M/mm3 (4.6-6.20); Red Cell Distribution Width 16.6 % (11.5-14.5); White Blood Count 9.6 K/mm3 (4.5-10.0)
[2020-01-24 06:36] LABS: Blood Urea Nitrogen 28 mg/dL (9-20); Calcium 8.5 mg/dL (8.4-10.2); Carbon Dioxide 23 mmol/L (22-30); Chloride 101 mmol/L (98-107); Estimated CRCL calculation 52 ml/min; Estimated Glomerular Filt Rate > 60; Glucose 98 mg/dL (75-110); Potassium 4.9 mmol/L (3.4-5.0); Sodium 133 mmol/L (137-145)
--- NOTE | 2020-01-24 11:40 | PM.PNCARD ---
Progress Note: A&P Assessment and Plan (1) Atrial flutter: Code(s): I48.92 - Unspecified atrial flutter Status: Acute Assessment and Plan: Symptomatic tachycardia related to atrial flutter with RVR. Heart rate 200 on 01/23/2020 at 7:30 a.m.. Improved with Metoprolol. On a diltiazem drip since admission. Cardioverted to sinus rhythm by Dr. Lazcano on 01/23/2020. First dose of flecainide was given at 10:41 a.m.. Diltiazem was discontinued. Heart rate 70s to up to 95 over the afternoon. Second dose of flecainide was given at 8:19 p.m. heart rate was reported to be 108 at the time of administration. Heart rates documented after the 2nd dose were in the 60s to 50 range. At 1:22 a.m. he had a 5.6 second pause. Recovery after that was in junctional rhythm. He remained bradycardic with 3.4 second pause at 4:21 a.m. and in another pause of 3.79 seconds at 4:24 a.m.. And was given some IV fluids. Dr Vera recommended holding his Eliquis in case he needed a pacemaker. Heart rates this morning of been in the 60s. Flecainide has been discontinued. At the time of my assessment his heart rate was in the 80s. He complained of lightheadedness with a blood pressure of 125/78. Looking through on his rhythms with Dr Banda will start Metoprolol tartrate 12.5 mg every 12 hours first dose now. He does not tolerate atrial flutter at a rapid rate. He certainly need some type of AV fili blocking agent. 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 The longest pause was during sleep. Apnea link tonight. (2) COPD (chronic obstructive pulmonary disease): Code(s): J44.9 - Chronic obstructive pulmonary disease, unspecified Status: Chronic Assessment and Plan: Management per primary service On room air. No wheezing today. Additional Plan Plan discussed with Dr Banda [id number] 01/24/2020 Subjective Date/time seen: 01/24/20 11:40 Interval history: Follow-up for: Atrial flutter with rapid ventricular response post cardioversion 01/23/2020, long-term use of anticoagulation, mitral valve replacement, COPD with chronic tobacco use, abnormal echo Date of service: 01/24/2020 Subjective: Wants to go home. Denied chest discomfort or shortness of breath. Lightheaded on occasion. States this lightheaded at the time of our interview, no palpitations. Review of Systems Constitutional: Constitutional: Denies lethargy and Denies weakness Eyes: Eyes: Denies blurry vision ENT: Reports Normal hearing present and Denies epistaxis Cardiovascular: Cardiovascular: Denies chest pain, Denies pedal edema, Reports lightheadedness (Occasional), Denies palpitations and Denies dyspnea Respiratory: Respiratory: Denies dyspnea Gastrointestinal: Gastrointestinal: Denies abdominal pain, Denies nausea and Denies vomiting Musculoskeletal: Musculoskeletal: Denies arthralgias Neurologic: Reports Normal hearing present and Denies weakness Psychiatric: Psychiatric: Denies anxiety and Denies depression Endocrine: Endocrine: Denies palpitations Hematologic/Lymphatic: Hematologic/Lymphatic: Reports no additional hematologic/lymphatic complaints Allergic/Immunologic: Allergic/Immunologic: Denies throat swelling and Denies wheezing Exam Const: Other: Thin cachectic-appearing gentleman up in the chair. No distress. Wants to go home. HENMT: Mouth: Yes dry mucous membranes Eyes: Sclera: sclerae normal Pupils: Equal, round and reactive pupils present Neck: Neck: normal visual inspection and full ROM Other: Carotid upstrokes are intact Resp: Auscultation: diminished lung sounds Cardio: Rate: regular rate Rhythm: regular rhythm Peripheral pulses: Peripheral pulses 2+ throughout Other: Grade 2/6 holosystolic murmur at the left sternal border GI: GI P
[2020-01-24] MEDS: DIVALPROEX SODIUM SPRINKLE 125 MG CAP.DR PO ×2 (11:53→18:29)
[2020-01-24] MEDS: lisinopriL 20 MG TABLET PO (11:54)
[2020-01-24] MEDS: guaiFENesin 12 HR 600 MG TABCR PO ×2 (11:54→20:32)
[2020-01-24] MEDS: OXcarbazepine 300 MG TABLET PO ×2 (11:54→18:30)
[2020-01-24] MEDS: TAMSULOSIN HCL 0.4 MG CAPSULE PO (11:54)
[2020-01-24] MEDS: SPIRONOLACTONE 25 MG TABLET PO (11:54)
[2020-01-24] MEDS: FAMOTIDINE 20 MG/2 ML VIAL IV PUSH ×2 (11:55→20:32)
[2020-01-24] MEDS: DOXYCYCLINE HYCLATE 100 MG TABLET PO ×2 (11:55→20:32)
[2020-01-24] MEDS: METOPROLOL TARTRATE 12.5 MG TABLET PO ×2 (14:36→20:32)
--- NOTE | 2020-01-24 14:56 | PM.IMPN ---
Progress Note: A&P Assessment and Plan (1) Atrial flutter: Code(s): I48.92 - Unspecified atrial flutter Status: Acute Assessment and Plan: He had symptomatic tachycardia and was noted to be in atrial flutter on 01/23/20 with HR up to 200. Underwent cardioversion on 01/23/[address] Lazcano with successful hoahaoism of sinus rhythm Started on flecainide on 01/22 but was noted to have pauses up to 5 seconds early am on 01/23. Flecainide has since been discontinued. Given his pauses occurred while asleep, he will receive an apnea link tonight Will begin metoprolol tartrate 12.5 mg BID and continue to monitor rate closely Cardiology is following and recommendations are appreciated. 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 (2) Atrial fibrillation with rapid ventricular response: Code(s): I48.91 - Unspecified atrial fibrillation Status: Acute Assessment and Plan: Patient has a history of A-fib and is established with repossession agent Dr. Shane. He was noted to be in A-fib with RVR at presentation. He was started on diltiazem drip on 01/20, which was discontinued on 01/21 because his heart rate dropped into the 40s. Diltiazem drip was again resumed on 01/22 following episode of symptomatic tachycardia, but was discontinued following successful cardioversion. Eliquis has been held in the event he requires a pacemaker tomorrow Cardiology has been consulted and their recommendations are appreciated. Continue to monitor on telemetry (3) Pneumonia: Qualifiers: Laterality: bilateral Lung location: unspecified part of lung Pneumonia type: due to unspecified organism Qualified Code(s): J18.9 - Pneumonia, unspecified organism Code(s): J18.9 - Pneumonia, unspecified organism Status: Acute Assessment and Plan: Chest x-ray demonstrates bilateral airspace disease (L>R). Patient complains of increased shortness of breath and cough productive of sputum. He is afebrile and without leukocytosis. I suspect this is related to his underlying COPD. Continue azithromycin and ceftriaxone Preliminary blood cultures show NGTD. Sputum culture was not performed as specimen was inadequate. Pneumococcal and legionella urinary antigens are pending Continue supportive care with oxygen as needed, albuterol and mucinex (4) COPD (chronic obstructive pulmonary disease): Code(s): J44.9 - Chronic obstructive pulmonary disease, unspecified Status: Chronic Assessment and Plan: Patient has a history of COPD but is not on any bronchodilators. He is maintaining adequate oxygenation on room air. He does complain of increased shortness of breath and cough. Echo demonstrated evidence of chronic lung disease with right atrial and ventricular dilation and pulmonary hypertension. Unfortunately, he continues to smoke daily but states he has cut down to approximately 4 cigarettes per day. Continue albuterol and ipratropium Patient may benefit from outpatient pulmonary function testing Continue to encourage smoking cessation. He declined nicotine patch (5) Chest pain: Code(s): R07.9 - Chest pain, unspecified Status: Acute Assessment and Plan: He had an episode of left sided chest discomfort on 01/20 with negative troponins and no evidence of ST changes on EKG, therefore ACS was not suspected. He again complained of anterior left-sided chest pain on 01/22 which was reproducible with palpation of chest wall and exacerbated by coughing or deep breaths. Suspect this is pleuritic related to underlying pneumonia/COPD. PE is less likely given chronic Eliquis therapy. LE Doppler negative for DVT. Continue nitroglycerin as needed for pain Continue to monitor (6) Bilateral pleural effusion: Code(s): J90 - Pleural effusion, not elsewhere classified Status: Acute Assessment and Plan: Patient has small pleural effu
[2020-01-24] MEDS: ARIPIPRAZOLE 10 MG TABLET PO (20:32)
[2020-01-24] MEDS: traZODone HCL 50 MG TABLET 150 MG PO (20:32)
--- NOTE | 2020-01-24 22:00 | PCRCNOTE ---
PT REQUIRES FREQUENT MONITORING AND IS SCHEDULED FOR POSSIBLE PACEMAKER TOMORROW. AFTER DISCUSSION WITH ANA WILL, APNEA LINK WILL BE HELD UNTIL PT IS MORE STABLE.
[2020-01-24 22:40] LABS: Pneumococcal Antigen Urine Not Detected (Not Detected)
[2020-01-25] VITALS (18 sets, daily range): BP systolic 104–121; BP diastolic 65–74; PULSE 57–79; RESP 12–18; TEMP 35.9–38.6; O2SAT 92–100
[2020-01-25] MEDS: IPRATROPIUM BR 0.02% INH SOLN 0.5 MG/2.5 ML VIAL INHALATION ×3 (01:27→15:06)
[2020-01-25] MEDS: ACETAMINOPHEN 325 MG TABLET 650 MG PO (03:54)
[2020-01-25] MEDS: DIVALPROEX SODIUM SPRINKLE 125 MG CAP.DR PO ×2 (11:24→18:15)
[2020-01-25] MEDS: FAMOTIDINE 20 MG/2 ML VIAL IV PUSH (11:24)
[2020-01-25] MEDS: guaiFENesin 12 HR 600 MG TABCR PO (11:24)
[2020-01-25] MEDS: METOPROLOL TARTRATE 12.5 MG TABLET PO (11:25)
[2020-01-25] MEDS: OXcarbazepine 300 MG TABLET PO ×2 (11:25→18:16)
[2020-01-25] MEDS: lisinopriL 20 MG TABLET PO (11:25)
[2020-01-25] MEDS: SPIRONOLACTONE 25 MG TABLET PO (11:25)
[2020-01-25] MEDS: DOXYCYCLINE HYCLATE 100 MG TABLET PO (11:26)
[2020-01-25] MEDS: TAMSULOSIN HCL 0.4 MG CAPSULE PO (11:26)
--- NOTE | 2020-01-25 12:16 | PM.PNCARD ---
Progress Note: A&P Assessment and Plan (1) Atrial flutter: Code(s): I48.92 - Unspecified atrial flutter Status: Acute Assessment and Plan: Symptomatic tachycardia related to atrial flutter with RVR. Heart rate 200 on 01/23/2020 at 7:30 a.m.. Improved with Metoprolol. On a diltiazem drip since admission. Cardioverted to sinus rhythm by Dr. Lazcano on 01/23/2020. First dose of flecainide was given at 10:41 a.m.. Diltiazem was discontinued. Heart rate 70s to up to 95 over the afternoon. Second dose of flecainide was given at 8:19 p.m. heart rate was reported to be 108 at the time of administration. Heart rates documented after the 2nd dose were in the 60s to 50 range. At 1:22 a.m. he had a 5.6 second pause. Recovery after that was in junctional rhythm. He remained bradycardic with 3.4 second pause at 4:21 a.m. and in another pause of 3.79 seconds at 4:24 a.m.. He was hypotensive and given 500 cc of fluid. Eliquis was held in case he needed a pacemaker. Heart rates 01/24/2020 were in the 60s. Flecainide has been discontinued. He was started on Metoprolol tartrate 12.5 mg every 12 hours. No further bradycardia or rapid atrial flutter. No pauses. He was not able to have the apnea link done last night. Eliquis resumed. Does not need a pacemaker at this time. Discussed with Dr. Lazcano, felt that the significant pause and bradycardia could have been a combination of all of the above medications. Tolerating low-dose Metoprolol at this time. He will be referred to top cutter for the atrial flutter and tachy-mishel syndrome.. (2) COPD (chronic obstructive pulmonary disease): Code(s): J44.9 - Chronic obstructive pulmonary disease, unspecified Status: Chronic Assessment and Plan: Management per primary service On room air. No wheezing. Additional Plan OK to discharge from cardiac standpoint See discharge instructions for follow-up GranddaughterLulu [phone] was contacted with the above information. Plan discussed with Dr. Lazcano [id number] 01/25/2020 Subjective Date/time seen: 01/25/20 12:16 Interval history: Follow-up for: Atrial flutter with rapid ventricular response post cardioversion 01/23/2020, long-term use of anticoagulation, mitral valve replacement, COPD with chronic tobacco use, abnormal echo Date of service: 01/25/2020 Subjective: No chest discomfort, shortness of breath, lightheadedness or palpitations. Review of Systems Constitutional: Constitutional: Denies lethargy and Denies weakness Eyes: Eyes: Denies blurry vision ENT: Reports Normal hearing present, Denies epistaxis and Denies throat swelling Cardiovascular: Cardiovascular: Denies chest pain, Denies pedal edema, Denies lightheadedness, Denies palpitations and Denies dyspnea Respiratory: Respiratory: Denies dyspnea and Denies wheezing Gastrointestinal: Gastrointestinal: Denies abdominal pain, Denies nausea and Denies vomiting Musculoskeletal: Musculoskeletal: Denies arthralgias Neurologic: Reports Normal hearing present and Denies weakness Psychiatric: Psychiatric: Denies anxiety and Denies depression Endocrine: Endocrine: Denies palpitations Hematologic/Lymphatic: Hematologic/Lymphatic: Reports easy bruising Allergic/Immunologic: Allergic/Immunologic: Denies throat swelling and Denies wheezing Exam Const: Other: Thin cachectic-appearing gentleman up in the chair. No distress. Ready to go home. HENMT: Mouth: Yes dry mucous membranes Eyes: Sclera: sclerae normal Pupils: Equal, round and reactive pupils present Neck: Neck: normal visual inspection and full ROM Thyroid: thyroid normal Other: Resp: Auscultation: diminished lung sounds Cardio: Rate: regular rate Rhythm: regular rhythm Peripheral pulses: Peripheral pulses 2+ throughout Other: Grade 2/6 holosystolic murmur at the left sternal border GI: Auscultat
[2020-01-25] MEDS: APIXABAN 5 MG TABLET PO (13:52)
--- NOTE | 2020-01-26 00:26 | PCRCNOTE ---
Patient was discharged January 24, therefore unable to do apnea link.
[2020-01-26 03:08] LABS: Legionella pneumophila Ag Ur Not Detected (Not Detected)
--- NOTE | 2020-01-31 14:16 | PM.DS ---
DS: Admitting Diagnosis Admitting Diagnosis Admitting Diagnosis: Pneumonia, unspecified organism DS: Discharge Diagnosis Discharge Diagnosis (1) Atrial flutter: Qualifiers: Atrial flutter type: unspecified Qualified Code(s): I48.92 - Unspecified atrial flutter Code(s): I48.92 - Unspecified atrial flutter Status: Acute Assessment and Plan: He had symptomatic tachycardia and was noted to be in atrial flutter on 01/23/20 with HR up to 200. He underwent cardioversion on 01/23/[address] Lazcano with successful druze of sinus rhythm. He was started on flecainide on 01/22 but was noted to have pauses up to 5 seconds early am on 01/23. Flecainide was then discontinued. He was started on metoprolol tartrate 12.5 mg b.i.d. and his rate was controlled with that. He was seen in consultation by cardiology who consider pacemaker implantation possible tachy-mishel syndrome, however his heart rate remained stable on his metoprolol. He was given a referral to an associate professor of sociology who will contact him for an appointment. He also will follow-up with cardiology as an outpatient in several weeks. (2) Atrial fibrillation with rapid ventricular response: Code(s): I48.91 - Unspecified atrial fibrillation Status: Acute Assessment and Plan: Patient has a history of A-fib and was noted to be in A-fib with RVR at presentation. He was started on diltiazem drip on 01/20, which was discontinued on 01/21 because his heart rate dropped into the 40s. Diltiazem drip was again resumed on 01/22 following episode of symptomatic tachycardia, but was discontinued following successful cardioversion. Eliquis was held for 1 day in the event of possible pacemaker implantation, but was then resumed. Cardiology followed the patient and he will follow-up as an outpatient. (3) Pneumonia: Qualifiers: Laterality: bilateral Lung location: unspecified part of lung Pneumonia type: due to unspecified organism Qualified Code(s): J18.9 - Pneumonia, unspecified organism Code(s): J18.9 - Pneumonia, unspecified organism Status: Acute Assessment and Plan: Chest x-ray demonstrated bilateral airspace disease (L>R). Patient complained of increased shortness of breath and cough productive of sputum. He was afebrile and without leukocytosis. I suspect this was related to his underlying COPD. Blood cultures were negative. Sputum culture was unable to be performed due to inadequate specimen. Pneumococcal and legionella urinary antigens were negative. He will continue doxycycline and ceftriaxone as an outpatient to complete 7 days of antibiotic therapy. (4) COPD (chronic obstructive pulmonary disease): Code(s): J44.9 - Chronic obstructive pulmonary disease, unspecified Status: Chronic Assessment and Plan: Patient has a history of COPD but is not on any bronchodilators. He maintained adequate oxygenation on room air. Echo demonstrated evidence of chronic lung disease with right atrial and ventricular dilation and pulmonary hypertension. Unfortunately, he continues to smoke daily but states he has cut down to approximately 4 cigarettes per day. He was started on Spiriva and albuterol as needed for rescue. He may benefit from outpatient pulmonary function testing at the rolled mentation of his PCP. He was educated on smoking cessation for 5 minutes, however he is not interested in quitting at this time. He declined a nicotine patch during his stay. (5) Chest pain: Code(s): R07.9 - Chest pain, unspecified Status: Acute Assessment and Plan: He had an episode of left sided chest discomfort on 01/20 with negative troponins and no evidence of ST changes on EKG, therefore ACS was not suspected. He again complained of anterior left-sided chest pain on 01/22 which was reproducible with palpation of chest wall and exacerbated by coughing or deep breaths. Suspect this was pleuritic related
== END 2020-01-25 18:40 | disposition home health service (06) | DRG 308 ==
LOC: ANHED 19:03 → ANHIMU 21:42
PROVIDERS: Family Medicine; Specialist; Admitting Provider Family Medicine; Emergency Provider Emergency Medicine; Visit Provider Physician Assistant
PROC: 5A2204Z Restoration of Cardiac Rhythm, Single (ICD-10-PCS; principal; 2020-01-23 10:00)
DX: I48.0 Paroxysmal atrial fibrillation (principal); J18.9 Pneumonia, unspecified organism; J44.0 Chronic obstructive pulmonary disease with (acute) lower respiratory infection; I25.810 Atherosclerosis of coronary artery bypass graft(s) without angina pectoris; R64 Cachexia; Z68.1 Body mass index [BMI] 19.9 or less, adult; I48.92 Unspecified atrial flutter; G40.909 Epilepsy, unspecified, not intractable, without status epilepticus; F41.9 Anxiety disorder, unspecified; F17.210 Nicotine dependence, cigarettes, uncomplicated; Z79.01 Long term (current) use of anticoagulants; Z95.1 Presence of aortocoronary bypass graft; Z95.2 Presence of prosthetic heart valve
CPT/HCPCS: 36415; 71046; 80048; 80053; 82550; 82728; 83605; 83615; 83735; 83880; 84439; 84443; 84480; 84484; 85025; 85027; 85610; 85730; 86140; 87040; 87070; 87205; 87449; 87899; 92960; 93005; 93306; 93970; 94640; 96365; 96366; 96368; 96375; 97110; 97116; 97161; 97165; 97535; 99285; A9270; J0456; J0696; J1940; J2270; J2704; J7040

== ENCOUNTER 2020-02-14 15:35 | Emergency (ER) | payer MEDICARE, MEDICAID, SELFPAY ==
[2020-02-14 15:36] VITALS: BP 148/86; PULSE 68; RESP 18; TEMP 36.5; O2SAT 97
--- NOTE | 2020-02-14 16:39 | ED.EPISTAXIS ---
HPI - Epistaxis General Chief complaint: Epistaxis <FELICIANO Holly Last Filed: 02/14/20 18:22> Stated complaint: nosebleed <FELICIANO Holly Last Filed: 02/14/20 18:22> Time Seen by Provider: 02/14/20 15:50 <FELICIANO Holly Last Filed: 02/14/20 18:22> Source: patient <FELICIANO Holly Last Filed: 02/14/20 18:22> Mode of arrival: EMS <FELICIANO Holly Last Filed: 02/14/20 18:22> Limitations: no limitations <FELICIANO Holly Last Filed: 02/14/20 18:22> History of Present Illness HPI Narrative: This is a 74 year old male that presents to the ER for nosebleeds for the last couple of days. Reports he keeps having left sided epistaxis. Reports he has been unable to get it to stop. Reports he takes Eliquis for Afib. Denies fever. <FELICIANO Holly Last Filed: 02/14/20 18:22> Related Data Home medications: Home Medications Medication Instructions Recorded Confirmed Eliquis 5 mg PO BID 01/21/20 01/21/20 aripiprazole 10 mg PO HS 01/21/20 01/21/20 citalopram 40 mg PO DAILY 01/21/20 01/21/20 divalproex 125 mg PO BID 01/21/20 01/21/20 lisinopril 20 mg PO DAILY 01/21/20 01/21/20 oxcarbazepine 300 mg PO BID 01/21/20 01/21/20 spironolactone 25 mg PO DAILY 01/21/20 01/21/20 tamsulosin 0.4 mg PO DAILY 01/21/20 01/21/20 trazodone 150 mg PO HS 01/21/20 01/21/20 <FELICIANO Holly Last Filed: 02/14/20 18:22> Allergies/adverse reactions: Allergies Allergy/AdvReac Type Severity Reaction Status Date / Time quinine Allergy Unknown Unknown Verified 02/14/20 15:46 <Sherri Corona PA-C - Last Filed: 02/14/20 18:22> Review of Systems Review of Systems: Narrative: CONSTITUTIONAL: Denies fever ENT: Reports epistaxis <Sherri Corona PA-C - Last Filed: 02/14/20 18:22> All systems reviewed & are unremarkable except as noted in HPI and below <Sherri Corona PA-C - Last Filed: 02/14/20 18:22> [facility] Social History Social History: Social History Smoking packs per day: 0.5 Smoking cigarettes per day: 10.0 Years smoked: 40 Smoking pack-years: 20.00 Smoking status: Current every day smoker Tobacco type: cigarettes Alcohol intake: former Substance use: current Substance use type: marijuana Gender identity (if verbalized by the patient): Male Spiritual care concerns: No <Sherri Corona PA-C - Last Filed: 02/14/20 18:22> Exam Narrative: Exam Narrative: GENERAL: Well-appearing, well-nourished, and in no acute distress. HEAD: Normocephalic, atraumatic. EYES: EOMI. ENT: Left-sided epistaxis. Mucous membranes moist. Oropharynx without tonsillar hypertrophy exudate or other lesions. NECK: Supple. No adenopathy or masses. EXTREMITIES: Normal range of motion. No edema. SKIN: Warm, dry, no rash. NEURO: No focal deficits. Alert and oriented x3. PSYCH: Normal mood and affect <Sherri Corona PA-C - Last Filed: 02/14/20 18:22> Course Consultations Consultation #1: Spoke with ENT Dr. Amin about patient who will follow-up in clinic. <FELICIANO Holly Last Filed: 02/14/20 18:22> Date: 02/14/20 <FELICIANO Holly Last Filed: 02/14/20 18:22> Time: 18:13 <FELICIANO Holly Last Filed: 02/14/20 18:22> Consultation #2: Spoke with Dr. Hardin who agrees with holding Eliquis until he follows up with ENT. <Sherri Corona PA-C - Last Filed: 02/14/20 18:22> Date: 02/14/20 <Sherri Corona PA-C - Last Filed: 02/14/20 18:22> Time: 18:13 <Sherri Corona PA-C - Last Filed: 02/14/20 18:22> Vital Signs Vital signs: Vital Signs Temperature 36.5 C 02/14/20 15:36 Pulse Rate 68 02/14/20 15:36 Respiratory Rate 18 02/14/20 15:36 Blood Pressure 148/86 H 02/14/20 15:36 Pulse Oximetry 97 02/14/20 15:36 Temperature 36.5 C 02/14/20 15:36 Pulse Rate 68 02/14/20 15:
[2020-02-14 16:53] LABS: Basophils Absolute Auto 0.1 K/mm3 (0.0-0.1); Basophils Percent Auto 0.9 % (0.2-1.2); Eosinophils Absolute Auto 0.2 K/mm3 (0-0.3); Eosinophils Percent Auto 3.3 % (0-4.4); Hematocrit 29.4 % (42.0-52.0); Hemoglobin 8.9 g/dL (14.0-18.0); Immature Granulocyte Absolute 0.02 K/mm3 (0.00-0.031); Immature Granulocyte Percent A 0.3 % (0-0.5); Lymphocytes Absolute Auto 1.73 K/mm3 (0.9-3.2); Mean Corpuscular HGB Conc 30.3 g/dl (32-36); Mean Corpuscular Hemoglobin 26.3 pg (26-34); Mean Corpuscular Volume 86.7 fl (80-100); Mean Platelet Volume 9.3 fl (7.4-10.4); Monocytes Absolute Auto 0.7 K/mm3 (0.1-0.6); Monocytes Percent Auto 11.5 % (2.6-8.5); Neutrophils Absolute Auto 3.1 K/mm3 (1.3-6.7); Platelet Count Result 311 k/mm3 (150-375); Red Blood Count 3.39 M/mm3 (4.6-6.20); Red Cell Distribution Width 15.9 % (11.5-14.5); White Blood Count 5.8 K/mm3 (4.5-10.0)
[2020-02-14 17:07] LABS: Partial Thromboplastin Time 36.4 SECONDS (22.3-36.8)
[2020-02-14 17:12] LABS: INR 1.4; Prothrombin Time 17.2 Seconds (11.1-14.7)
[2020-02-14 19:17] VITALS: BP 152/98; PULSE 78; RESP 18; O2SAT 98
== END 2020-02-14 19:19 | disposition home or self-care (01) ==
PROVIDERS: Physician Assistant; Emergency Provider Emergency Medicine
DX: R04.0 Epistaxis (principal); I48.91 Unspecified atrial fibrillation; Z79.01 Long term (current) use of anticoagulants; F17.210 Nicotine dependence, cigarettes, uncomplicated
CPT/HCPCS: 30901; 36415; 85025; 85610; 85730; 99283; A9270

== ENCOUNTER 2020-05-19 10:30 | Emergency (ER) | payer MEDICARE, MEDICAID, SELFPAY ==
--- NOTE | ~2020-05-19 | XR_ITS ---
EXAMINATION: XR chest 1V portable INDICATION: Shortness of breath TECHNIQUE: Portable AP chest at 1201 hours COMPARISON: 01/21/2020 FINDINGS: The lungs are hyperinflated. Small pleural effusions are present, left greater than right. There is no pneumothorax. Cardiomegaly is noted. There are changes of prior cardiac surgery. IMPRESSION: 1. Small pleural effusions, left greater than right. 2. Bibasilar airspace opacities, consistent with atelectasis versus pneumonia. 3. Cardiomegaly. Reviewed, dictated and finalized at location A. [facility]
[2020-05-19 10:43] VITALS: BP 135/90; PULSE 95; RESP 18; TEMP 36.3; O2SAT 100
--- NOTE | 2020-05-19 11:08 | ED.PSYCH ---
HPI - Psych General Chief Complaint: Psychiatric Symptoms <Sherri Corona PA-C - Last Filed: 05/20/20 10:32> Stated Complaint: SI <Sherri Corona PA-C - Last Filed: 05/20/20 10:32> Time Seen by Provider: 05/19/20 10:33 <FELICIANO Holly Last Filed: 05/20/20 10:32> Source: patient <FELICIANO Holly Last Filed: 05/20/20 10:32> Mode of arrival: EMS <FELICIANO Holly Last Filed: 05/20/20 10:32> Limitations: no limitations <FELICIANO Holly Last Filed: 05/20/20 10:32> History of Present Illness HPI Narrative: This is a 74 year old male that presents to the ER for suicidal ideations. Reports he feels like a prisoner in his home. Reports he lives with his granddaughter. He has not been able to get out of the house much. Reports he has had thoughts of stabbing himself because he is so depressed. Reports he has not taken his psychiatric medications in months because they make him feel worse. Denies any previous suicide attempts or psychiatric hospitalizations. Denies fever, chest pain, shortness of breath, hallucinations, or homicidal ideations. Per EMS patient was recently hospitalized at [facility] <Sherri Corona PA-C - Last Filed: 05/20/20 10:32> Related Data Home Medications: Home Medications Medication Instructions Recorded Confirmed Eliquis 5 mg PO BID 01/21/20 01/21/20 aripiprazole 10 mg PO HS 01/21/20 01/21/20 citalopram 40 mg PO DAILY 01/21/20 01/21/20 lisinopril 20 mg PO DAILY 01/21/20 01/21/20 oxcarbazepine 300 mg PO BID 01/21/20 01/21/20 spironolactone 25 mg PO DAILY 01/21/20 01/21/20 tamsulosin 0.4 mg PO DAILY 01/21/20 01/21/20 trazodone 150 mg PO HS 01/21/20 01/21/20 aspirin 325 mg PO DAILY 05/19/20 diltiazem HCl [DILT-XR] 240 mg PO 05/19/20 docusate sodium 100 mg PO DAILY 05/19/20 ferrous sulfate 324 mg PO DAILY 05/19/20 furosemide 20 mg PO DAILY 05/19/20 linaclotide [Linzess] 145 mcg PO 05/19/20 melatonin 3 mg PO HS PRN 05/19/20 metoprolol tartrate 12.5 mg PO 05/19/20 <Sherri Corona PA-C - Last Filed: 05/20/20 10:32> Allergies/Adverse Reactions: Allergies Allergy/AdvReac Type Severity Reaction Status Date / Time quinine Allergy Unknown Unknown Verified 05/19/20 11:06 <Sherri Corona PA-C - Last Filed: 05/20/20 10:32> Review of Systems Review of Systems: Narrative: CONSTITUTIONAL: Denies fever CARDIOVASCULAR: Denies chest pain RESPIRATORY: Denies cough or dyspnea. PSYCHIATRIC: Reports depression. <Sherri Corona PA-C - Last Filed: 05/20/20 10:32> All systems reviewed & are unremarkable except as noted in HPI and below <Sherri Corona PA-C - Last Filed: 05/20/20 10:32> [facility] Past Medical History Medical History: Medical History (Updated 05/20/20 @ 10:31 by Sherri Corona PA-C) Anxiety CAD (coronary artery disease) of artery bypass graft Chest pain COPD (chronic obstructive pulmonary disease) Family history unremarkable History of depression Paroxysmal atrial fibrillation Seizure disorder <Sherri Corona PA-C - Last Filed: 05/20/20 10:32> Surgical History Surgical History: Surgical History Hx of CABG <Sherri Corona PA-C - Last Filed: 05/20/20 10:32> Social History Social History: Social History Smoking packs per day: 0.5 Smoking cigarettes per day: 10.0 Years smoked: 40 Smoking pack-years: 20.00 Smoking status: Current every day smoker Tobacco type: cigarettes Alcohol intake: former Substance use: current Substance use type: marijuana Gender identity (if verbalized by the patient): Male Spiritual care concerns: No <Sherri Corona PA-C - Last Filed: 05/20/20 10:32> Exam Narrative: Exam Narrative: GENERAL: Disheveled, well-nourished, and in no acute distress. HEAD: Normocephalic, atraumatic. EYES: EOMI. CHEST: C
[2020-05-19 11:42] LABS: Add Urine Microscopic? YES; Appearance Urine Clear (Clear); Bacteria Urine Trace /hpf; Bilirubin Urine Negative (Negative); Blood Urine Negative (Negative); Color Urine Yellow (Yellow); Glucose Urine UA Negative (Negative); Ketones Urine Negative (Negative); Leukocyte Esterase Ur Negative LEU/UL (Negative); Nitrate Urine Negative (Negative); Protein Urine Negative (Negative); RBC Urine 0-2 /hpf (0-2); Specific Grav Ur 1.018 (1.001-1.035); Squamous Epithelial Cell Urine Rare /hpf (Few); WBC Urine 0-3 /hpf
[2020-05-19 11:46] LABS: Basophils Absolute Auto 0.1 K/mm3 (0.0-0.1); Basophils Percent Auto 0.7 % (0.2-1.2); Eosinophils Absolute Auto 0.5 K/mm3 (0-0.3); Eosinophils Percent Auto 5.8 % (0-4.4); Hematocrit 30.5 % (42.0-52.0); Hemoglobin 8.8 g/dL (14.0-18.0); Immature Granulocyte Absolute 0.03 K/mm3 (0.00-0.031); Immature Granulocyte Percent A 0.4 % (0-0.5); Lymphocytes Absolute Auto 1.85 K/mm3 (0.9-3.2); Lymphocytes Percent Auto 22.4 % (18.3-44.2); Mean Corpuscular HGB Conc 28.9 g/dl (32-36); Mean Corpuscular Volume 83.1 fl (80-100); Mean Platelet Volume 9.1 fl (7.4-10.4); Monocytes Percent Auto 11.6 % (2.6-8.5); Neutrophils Absolute Auto 4.9 K/mm3 (1.3-6.7); Neutrophils Percent Auto 59.1 % (45.5-73.1); Platelet Count Result 408 k/mm3 (150-375); Red Blood Count 3.67 M/mm3 (4.6-6.20); Red Cell Distribution Width 15.9 % (11.5-14.5); White Blood Count 8.3 K/mm3 (4.5-10.0)
[2020-05-19 11:57] LABS: Amphetamine Screen Urine Negative (Negative); Barbiturate Screen Urine Negative (Negative); Benzodiazepines Screen Urine Negative (Negative); Cannabinoid Screen Urine Positive (Negative); Cocaine Screen Urine Negative (Negative); Methadone Screen Urine Negative (Negative); Opiate Screen Urine Negative (Negative); Phencyclidine Screen Urine Negative (Negative)
[2020-05-19 12:00] LABS: Alanine Aminotransferase 9 U/L (4-50); Albumin Level 4.1 g/dL (3.5-5.1); Alkaline Phosphatase 71 U/L (38-126); Anion Gap 4 mmol/L (8-16); Aspartate Amino Transferase 25 U/L (17-59); Bilirubin,Total 0.2 mg/dL (0.2-1.3); Blood Urea Nitrogen 15 mg/dL (9-20); Calcium 9.2 mg/dL (8.4-10.2); Carbon Dioxide 33 mmol/L (22-30); Chloride 101 mmol/L (98-107); Estimated CRCL calculation 88 ml/min; Estimated Glomerular Filt Rate > 60; Glucose 92 mg/dL (75-110); Potassium 4.9 mmol/L (3.4-5.0); Sodium 138 mmol/L (137-145)
[2020-05-19 12:01] LABS: Ethanol < 10 mg/dL (<10)
[2020-05-19 12:02] LABS: Anisocytosis 1+ (NORMAL); Hypochromasia 2+ (NORMAL); Microcytosis 1+ (NORMAL); Ovalocytes 1+ (NORMAL); Platelet Estimate Adequate (Adequate); Poikilocytosis 1+ (NORMAL); Schistocytes 1+ (NORMAL)
[2020-05-19 15:17] VITALS: PULSE 80
[2020-05-19] MEDS: METOPROLOL TARTRATE 12.5 MG TABLET PO (15:17)
--- NOTE | 2020-05-19 15:21 | PC.NURSE ---
pt becoming aggitated in room, yelling I want to get out of here!! Pt educated on plan of care after crisis eval, does not agree and wants to go home. EDP made aware.
--- NOTE | 2020-05-19 15:49 | ECG_ITS ---
Measurements Intervals [place] Rate: 113 P: 209 DC: 143 QRS: -48 QRSD: 96 T: 52 QT: 320 QTc: 440 Interpretive Statements ECTOPIC ATRIAL TACHYCARDIA POSSIBLE LEFT ATRIAL ENLARGEMENT LEFT ANTERIOR FASCICULAR BLOCK ABNORMAL ECG Electronically Signed On 05-19-2020 16:49:59 PRESCRIPTIONIST by Renny Lao D.O.
--- NOTE | 2020-05-19 15:51 | PC.NURSE ---
Glenys perez [facility] called requesting info for patient. Pt chart to be faxed to [phone] after all results are completed.
--- NOTE | 2020-05-19 16:05 | PC.NURSE ---
chart faxed to [place]
[2020-05-19 16:42] LABS: INR 1.2; Prothrombin Time 15.8 Seconds (11.1-14.7)
[2020-05-19 16:43] LABS: Partial Thromboplastin Time 34.6 SECONDS (22.3-36.8)
[2020-05-19 17:34] VITALS: BP 137/77; PULSE 74; RESP 18; TEMP 36.7; O2SAT 99
--- NOTE | 2020-05-19 17:41 | PC.NURSE ---
[facility] refused pt due to comorbidities.
--- NOTE | 2020-05-19 19:02 | PC.NURSE ---
Pt became increasingly agitated,began walking in halls stating that he is TO damn cold to be sitting in that room. Pt assisted back to bed, given additional blanket.
[2020-05-19] MEDS: OXcarbazepine 300 MG TABLET PO ×2 (21:37→21:38)
[2020-05-19] MEDS: ARIPiprazole 10 MG TABLET PO (21:37)
[2020-05-20 07:15] VITALS: BP 135/75; PULSE 75; RESP 16; TEMP 36.6; O2SAT 97
--- NOTE | 2020-05-20 07:15 | PC.NURSE ---
REPORT TAKEN FROM ANA CHAN, PT RESTING IN BED, SITTER W/ PATIENT IN DIRECT SITE. PER [facility] PT TO BE RE-EVALUATED BY CRISIS THIS MORNING DUE TO CHANGES IN HIS [place] SCALE, [facility] DENIES CALLING CRISIS. WILL ASSESS PT PSYCHOSOCIAL AND CALL CRISIS.
--- NOTE | 2020-05-20 08:12 | PC.NURSE ---
JUSTIN FROM CRISIS HAS ARRIVED FOR PT REEVALUATION.
--- NOTE | 2020-05-20 08:38 | PC.NURSE ---
PER JUSTIN FROM CRISIS SHE IS GOING TO D/C PT WITH SAFETY PLANS AND RESOURCES FOR ASSISTED LIVING AND ASSISTANCE FOR TRANSPORT TO [place] WHERE HE IS FROM.
--- NOTE | 2020-05-20 09:09 | PC.NURSE ---
JUSTIN FROM CRISIS AT BEDSIDE WITH RESOURCES FOR ASSISTED LIVING, DISCUSSING HOW TO GET [facility] OF FACILITY AND WHAT KIND OF INFORMATION THEY WILL NEED. PT VERBALIZED UNDERSTANDING, STATES THAT HE FEELS COMFORTABLE CONTACTING FACILITIES HE JUST NEEDED THE PHONE NUMBERS THAT HAVE NOW BEEN PROVIDED TO HIM.
--- NOTE | 2020-05-20 09:53 | PC.NURSE ---
DUE TO PT CHANGES IN PSYCHOSOCIAL STATUS AND POST EVALUATION BY CRISIS, THEY HAVE DEEMED THAT PT IS NOW LOW RISK AND DOES NOT NEED A SITTER. PT MOVED TO ROOM 13, CARE COORDINATION HAS CONTACTED FAMILY [facility]ERS AT THIS TIME TO CONFIRM PT ADDRESS HE IS NOT SURE OF HIS HOUSE NUMBER. AWAITING THEM TO CALL BACK AND THEN THEY PLAN ON PROVIDING PT A CAB VOUCHER.
--- NOTE | 2020-05-20 10:05 | PC.NURSE ---
PT PROVIDED HIS BELONGINGS BACK TO HIM BY RACHANA WASHINGTON AT THIS TIME DUE TO PLAN TO D/C PT.
--- NOTE | 2020-05-20 10:20 | PC.NURSE ---
CARE COORDINATION HAS SPOKEN WITH PT FAMILY AND THEY ARE AT THE PT'S HOUSE AWAITING HIS ARRIVAL. CAB VOUCHER PROVIDED.
--- NOTE | 2020-05-20 10:24 | PC.NURSE ---
JINNY VILLALPANDO INFORMED THAT PT HAS BEEN PROVIDED ALL THE NEEDED RESOURCES. AWAITING PT D/C PAPERWORK.
--- NOTE | 2020-05-20 10:36 | PC.NURSE ---
CHECKERED CAB CONTACTED FOR RIDE AT THIS TIME.
[2020-05-20 10:53] VITALS: BP 133/68; PULSE 75; RESP 16; O2SAT 98
[2020-05-20 20:51] LABS: SARS-CoV-2 RNA PCR Negative
== END 2020-05-20 10:40 | disposition home or self-care (01) ==
PROVIDERS: Emergency Medicine; Physician Assistant; Emergency Provider Emergency Medicine
DX: F32.9 Major depressive disorder, single episode, unspecified (principal); Z20.828 Contact with and (suspected) exposure to other viral communicable diseases; F41.9 Anxiety disorder, unspecified; I25.10 Atherosclerotic heart disease of native coronary artery without angina pectoris; J44.9 Chronic obstructive pulmonary disease, unspecified; I48.0 Paroxysmal atrial fibrillation; Z79.01 Long term (current) use of anticoagulants; Z79.82 Long term (current) use of aspirin; Z95.1 Presence of aortocoronary bypass graft; I47.1 Supraventricular tachycardia; I44.4 Left anterior fascicular block; I51.7 Cardiomegaly; R91.8 Other nonspecific abnormal finding of lung field
CPT/HCPCS: 36415; 71045; 80053; 80307; 81001; 84443; 85025; 85610; 85730; 87635; 93005; 99284; A9270; C9803; U0003